=== PATIENT | male | born 1980 | race Caucasian/White ===

== ENCOUNTER 2016-06-19 09:20 | Emergency (ER) | payer SELFPAY ==
[2016-06-19] MEDS ORDERED: ALBUTEROL SULFATE HFA (90 MCG/PUFF) 8 GM MDI (1 MDI/ER DISP) IH PRN (10:16)
[2016-06-19] MEDS ORDERED: PREDNISONE 20 MG TABLET PO ONE (10:16)
--- NOTE | 2016-06-19 10:34 | ER Document Report ---
ED General - General Chief Complaint: Cough Stated Complaint: CHEST PAIN,VOMITING Mode of Arrival: Ambulatory Information source: Patient Notes: 36-year-old male presents with complaints of cough shortness of breath over the past week. Patient notes a nonproductive denies any fevers or chills admits to nausea and vomiting after he coughs very hard. TRAVEL OUTSIDE OF THE [place] IN LAST 30 DAYS: No - HPI Onset: Last week Onset/Duration: Persistent Quality of pain: Achy Severity: Mild Pain Level: 1 Associated symptoms: Nonproductive cough Exacerbated by: Denies Relieved by: Denies Similar symptoms previously: No Recently seen / treated by doctor: No - Related Data Allergies/Adverse Reactions: morphine Allergy (Verified 06/19/16 09:37) venom-honey bee [bee venom (honey bee)] Allergy (Verified 06/19/16 09:37) Past Medical History - Social History Smoking Status: Current Every Day Smoker Cigarette use (# per day): Yes Chew tobacco use (# tins/day): Yes Smoking Education Provided: Yes - Patient counselled regarding cessation for 4 minutes Frequency of alcohol use: None Drug Abuse: None Family History: Reviewed & Not Pertinent Patient has suicidal ideation: No Patient has homicidal ideation: No Renal/ Medical History: Denies: Hx Peritoneal Dialysis Past Surgical History: Reports: Hx Appendectomy, Hx Orthopedic Surgery - left and right knee, right ankle - Immunizations Hx Diphtheria, Pertussis, Tetanus Vaccination: No Review of Systems - Review of Systems Notes: REVIEW OF SYSTEMS: CONSTITUTIONAL : Denies fever, chills, or sweats. Denies recent illness. EENT: Denies eye, ear, throat, or mouth pain or symptoms. Denies nasal or sinus congestion or discharge. Denies throat, tongue, or mouth swelling or difficulty swallowing. CARDIOVASCULAR: Denies chest pain. Denies palpitations or racing or irregular heart beat. Denies ankle edema. RESPIRATORY: Admits cough shortness of breath GASTROINTESTINAL: Denies abdominal pain or distention. Denies nausea, vomiting , or diarrhea. Denies blood in vomitus, stools, or per rectum. Denies black, tarry stools. Denies constipation. GENITOURINARY: Denies difficulty urinating, painful urination, burning, frequency, blood in urine, or discharge. MUSCULOSKELETAL: Denies back or neck pain or stiffness. Denies joint pain or swelling. SKIN: Denies rash, lesions or sores. HEMATOLOGIC : Denies easy bruising or bleeding. LYMPHATIC: Denies swollen, enlarged glands. NEUROLOGICAL: Denies confusion or altered mental status. Denies passing out or loss of consciousness. Denies dizziness or lightheadedness. Denies headache. Denies weakness or paralysis or loss of use of either side. Denies problems with gait or speech. Denies sensory loss, numbness, or tingling. Denies seizures. PSYCHIATRIC: Denies anxiety or stress. Denies depression, suicidal ideation, or homicidal ideation. ALL OTHER SYSTEMS REVIEWED AND NEGATIVE. Dictation was performed using [employer] voice recognition software PHYSICAL EXAMINATION: GENERAL: Well-appearing, well-nourished and in no acute distress. HEAD: Atraumatic, normocephalic. EYES: Pupils equal round and reactive to light, extraocular movements intact, sclera anicteric, conjunctiva are normal. ENT: Nares patent, oropharynx clear without exudates. Moist mucous membranes. NECK: Normal range of motion, supple without lymphadenopathy LUNGS: Decreased breath sounds all throughout with inspiratory History wheezing HEART: Regular rate and rhythm without murmurs ABDOMEN: Soft, nontender, nondistended abdomen. No guarding, no rebound. No masses appreciated. Musculoskeletal: Normal range of motion, no pitting or edema. No cyanosis. NEUROLOGICAL: Cranial nerves grossly intact. Normal speech, normal gait. Normal sensory, motor exams PSYCH: Normal mood, normal affect. SKIN: Warm, Dry, normal turgor, no rashes or lesions noted. Physical Exam - Vital signs Vitals: Temp Pulse Resp BP Pulse Ox 98.1 F 109 H 16 132/80 H 97 06/19/16 09:30 06/19/16 09:30 06/19/16 09:30 06/19/16 09:30 06/19/16 09:30 Course - Re-evaluation Re-evalutation: 06/19/16 10:33 Patient will be started on inhaler, steroids have been given. Chest x-rays pending at this time. It appears to be bronchitis. Patient given smoking cessation instructions 06/19/16 11:25 X-ray noted no acute abnormality patient will be discharged home at this time is much better After performing a Medical Screening Examination, I estimate there is LOW risk for ACUTE CORONARY SYNDROME, RESPIRATORY FAILURE, SEPSIS OR MENINGITIS, thus I consider the discharge disposition reasonable. The patient and I have discussed the diagnosis and risks, and we agree with discharging home with close follow- up. We also discussed returning to the Emergency Department immediately if new or worsening symptoms occur. We have discussed the symptoms which are most concerning (e.g., changing or worsening pain, trouble swallowing or breathing, neck stiffness, fever) that necessitate immediate return. - Vital Signs Vital signs: Temp Pulse Resp BP Pulse Ox 98.1 F 109 H 16 132/80 H 97 06/19/16 09:30 06/19/16 09:30 06/19/16 09:30 06/19/16 09:30 06/19/16 09:30 - Diagnostic Test Radiology reviewed: Image reviewed, Reports reviewed Discharge - Discharge Clinical Impression: Bronchitis, Encounter for smoking cessation counseling Condition: Stable Disposition: HOME, SELF-CARE Instructions: Bronchitis (COUNT INCLUDES THE [facility]) Additional Instructions: Follow up with your physician tomorrow for further care or return to the ED IMMEDIATELY if symptoms worsen or new concerns occur Prescriptions: Prednisone [Deltasone 20 mg Tablet] 3 tab PO DAILY 5 Days Forms: Return to Work
[2016-06-19 11:42] VITALS: BP 142/97
== END 2016-06-19 11:40 | disposition home or self-care (01) ==
LOC: ER 09:20
DX: J40 Bronchitis, not specified as acute or chronic (principal); R07.9 Chest pain, unspecified; R11.2 Nausea with vomiting, unspecified; F17.210 Nicotine dependence, cigarettes, uncomplicated; Z88.6 Allergy status to analgesic agent
CPT/HCPCS: 99283; 71020; J7512; J3490

== ENCOUNTER 2016-07-20 09:48 | Emergency (ER) | payer SELFPAY ==
[2016-07-20 09:52] VITALS: BP 136/92
[2016-07-20] MEDS ORDERED: ONDANSETRON 4 MG TAB.RAPDIS PO ONE (11:01)
--- NOTE | 2016-07-20 13:34 | ER Document Report ---
ED General - General Chief Complaint: Vomiting Stated Complaint: VOMITING Mode of Arrival: Ambulatory Information source: Patient Notes: 36-year-old male presents to the emergency department complaining of generalized body aches, cough, intermittent headache, and intermittent episodes of nausea and vomiting since yesterday. Reports associated chills with unmeasured temperature at home. Denies chest pain or shortness of breath, blood in emesis or stool, abdominal pain or vision changes. TRAVEL OUTSIDE OF THE [place] IN LAST 30 DAYS: No - HPI Onset: Yesterday Onset/Duration: Intermittent, Persistent Quality of pain: Achy Severity: Mild Pain Level: 2 Similar symptoms previously: Yes Recently seen / treated by doctor: No - Related Data Allergies/Adverse Reactions: morphine Allergy (Verified 07/20/16 10:46) venom-honey bee [bee venom (honey bee)] Allergy (Verified 07/20/16 10:46) Past Medical History - General Information source: Patient - Social History Smoking Status: Smoker,Current Status Unk Chew tobacco use (# tins/day): Yes Frequency of alcohol use: None Drug Abuse: None Lives with: Family Family History: Reviewed & Not Pertinent Patient has suicidal ideation: No Patient has homicidal ideation: No - Medical History Medical History: Negative Renal/ Medical History: Denies: Hx Peritoneal Dialysis Past Surgical History: Reports: Hx Appendectomy, Hx Orthopedic Surgery - left and right knee, right ankle - Immunizations Hx Diphtheria, Pertussis, Tetanus Vaccination: Yes Review of Systems - Review of Systems Constitutional: See HPI EENT: See HPI Cardiovascular: No symptoms reported Respiratory: See HPI Gastrointestinal: No symptoms reported Genitourinary: No symptoms reported Male Genitourinary: No symptoms reported Musculoskeletal: No symptoms reported Skin: No symptoms reported Hematologic/Lymphatic: No symptoms reported Neurological/Psychological: No symptoms reported -: Yes All other systems reviewed and negative Physical Exam - Vital signs Vitals: Temp Pulse Resp BP Pulse Ox 97.8 F 116 H 18 136/92 H 98 07/20/16 09:51 07/20/16 09:51 07/20/16 09:51 07/20/16 09:51 07/20/16 09:51 Interpretation: Normal - General General appearance: Appears well, Alert In distress: None - HEENT Head: Normocephalic, Atraumatic Eyes: Normal Conjunctiva: Normal Eyelashes: Normal Pupils: PERRL Ears: Normal External canal: Normal Tympanic membrane: Normal Sinus: Normal Nasal: Normal Mouth/Lips: Normal Mucous membranes: Normal, Moist Pharynx: Normal. No: Blood in hypopharynx, Erythema, Exudate, Peritonsillar abscess, Post nasal drainage, Retropharyngeal abscess, Tonsillar hypertrophy, Uvular edema, Potential airway comprom., Other Neck: Normal. No: Anterior cervical chain, Posterior cervical chain, Lymphadenopathy, Meningismus, Subcutaneous emphysema - Respiratory Respiratory status: No respiratory distress Chest status: Nontender Breath sounds: Normal - CTAB, Nonproductive cough. No: Rhonchi, Wheezing Chest palpation: Normal - Cardiovascular Rhythm: Regular Heart sounds: Normal auscultation Murmur: No Pulses: Normal: Radial Normal capillary refill: Yes - Abdominal Inspection: Normal Distension: No distension Bowel sounds: Normal Tenderness: Nontender Organomegaly: No organomegaly - Back Back: Normal, Nontender - Extremities General upper extremity: Normal inspection, Nontender, Normal color, Normal ROM , Normal strength, Normal temperature. No: Tender, Edema General lower extremity: Normal inspection, Nontender, Normal color, Normal ROM , Normal strength, Normal temperature, Normal weight bearing. No: Tender, Edema - Neurological Neuro grossly intact: Yes Cognition: Normal Orientation: AAOx4 [place] Coma Scale Eye Opening: Spontaneous Starr Coma Scale Verbal: Oriented [place] Coma Scale Motor: Obeys Commands [place] Coma Scale Total: 15 Speech: Normal Motor strength normal: LUE, RUE, LLE, RLE Sensory: Normal - Psychological Associated symptoms: Normal affect, Normal mood - Skin Skin Temperature: Warm Skin Moisture: Dry Skin Color: Normal Skin Turgor: Elastic Course - Re-evaluation Re-evalutation: 07/20/16 13:33 Patient hemodynamically stable, in no distress, afebrile. Initially tachycardic on vital signs upon arrival, resolved after oral fluid intake. Influenza negative, chest x-ray unremarkable. Patient appears stable for discharge andno murmur infectious, inflammatory, or vascular etiology at this time. Will treat for likely uncomplicated viral illness at this time. Patient agrees with discharge and home care, follow-up with PCP, ED return precautions. - Vital Signs Vital signs: Temp Pulse Resp BP Pulse Ox 97.8 F 116 H 18 136/92 H 98 07/20/16 09:51 07/20/16 09:51 07/20/16 09:51 07/20/16 09:51 07/20/16 09:51 Discharge - Discharge Clinical Impression: Viral syndrome Nausea & vomiting Qualifiers: Vomiting type: unspecified Vomiting Intractability: non-intractable Qualified Code(s): R11.2 - Nausea with vomiting, unspecified Condition: Stable Disposition: HOME, SELF-CARE Instructions: Vomiting ([facility]), Viral Syndrome ([facility]), Acetaminophen, Dehydration ([facility]), Use of [id number] Ibuprofen ([facility]), Diarrhea, Nonspecific ([facility]) Additional Instructions: Drink plenty of fluids, at least 2-3 liters of water per day. Follow-up with your primary care provider this week. Return to the emergency department for any worsening symptoms or concerns. Prescriptions: Ondansetron [Zofran Odt 4 mg Tablet] 1 tab PO Q6HP PRN #8 tab.rapdis PRN Reason: For Nausea/Vomiting Guaifenesin/D-Methorphan Hb [Guaifenesin-Dextromethorph Tab] 1 each PO Q12HP PRN #8 tab.sr.12h PRN Reason: Cough Forms: Elevated Blood Pressure, Return to Work
== END 2016-07-20 13:53 | disposition home or self-care (01) ==
LOC: ER 09:48
DX: R11.2 Nausea with vomiting, unspecified (principal); B34.9 Viral infection, unspecified; R51 Headache; R68.83 Chills (without fever); Z88.5 Allergy status to narcotic agent; Z91.030 Bee allergy status; Z72.0 Tobacco use; Z90.49 Acquired absence of other specified parts of digestive tract; R00.0 Tachycardia, unspecified
CPT/HCPCS: 99283; 87804; 71020; S0119

== ENCOUNTER 2016-07-24 06:13 | Emergency (ER) | payer SELFPAY ==
[2016-07-24] MEDS ORDERED: PREDNISONE 20 MG TABLET PO ONE (09:06)
[2016-07-24] MEDS ORDERED: ACETAMINOPHEN 325 MG TABLET PO ONE (09:06)
[2016-07-24] MEDS ORDERED: IPRATROPIUM/ALBUTEROL 0.5-2.5 MG/3 ML AMPUL NEB ONE (09:06)
--- NOTE | 2016-07-24 09:07 | ER Document Report ---
HPI - HPI Patient complains to provider of: cough Onset: Other Onset/Duration: Persistent - 4 days Quality of pain: Achy Pain Level: 4 Context: Patient complains of headache, body aches, and cough for the past 4 days. Patient states that he will cough until he vomits. Patient denies any fever. Patient denies any travel, immobilization or recent surgery. Patient denies any history of DVT or PE. Associated Symptoms: Body/muscle aches, Nonproductive cough, Headache, Vomiting - After coughing, Rhinnorhea. denies: Fever Exacerbated by: Denies Relieved by: Denies Similar symptoms previously: Yes Recently seen / treated by doctor: Yes - ROS ROS below otherwise negative: Yes Systems Reviewed and Negative: Yes All other systems reviewed and negative - CONSTITUTIONAL Constitutional: REPORTS: Chills. DENIES: Fever - EENT EENT: REPORTS: Congestion - NEURO Neurology: REPORTS: Headache - RESPIRATORY Respiratory: REPORTS: Coughing. DENIES: Trouble Breathing - GASTROINTESTINAL Gastrointestinal: REPORTS: Patient vomiting - After coughing - MUSCULOSKELETAL Musculoskeletal: DENIES: Extremity pain, Back Pain - DERM Skin Color: Normal Skin Problems: None Past Medical History - General Information source: Patient - Social History Smoking Status: Current Every Day Smoker Frequency of alcohol use: None Drug Abuse: None Occupation: fast food server Lives with: Family Family History: Reviewed & Not Pertinent Patient has suicidal ideation: No Patient has homicidal ideation: No - Medical History Medical History: Negative Renal/ Medical History: Denies: Hx Peritoneal Dialysis Past Surgical History: Reports: Hx Appendectomy, Hx Orthopedic Surgery - left and right knee, right ankle - Immunizations Hx Diphtheria, Pertussis, Tetanus Vaccination: Yes Vertical Provider Document - CONSTITUTIONAL Agree With Documented VS: Yes Exam Limitations: No Limitations General Appearance: WD/WN, No Apparent Distress - INFECTION CONTROL TRAVEL OUTSIDE OF THE [place] IN LAST 30 DAYS: No - HEENT HEENT: Atraumatic, Normocephalic. negative: Pharyngeal Exudate - NECK Neck: Normal Inspection, Supple. negative: Lymphadenopathy-Left, Lymphadenopathy-Right - RESPIRATORY Respiratory: No Respiratory Distress, Wheezing O2 Sat by Pulse Oximetry: 97 - CARDIOVASCULAR Cardiovascular: Regular Rhythm, No Murmur, Tachycardia - BACK Back: Normal Inspection - MUSCULOSKELETAL/EXTREMETIES Musculoskeletal/Extremeties: MAEW - NEURO Level of Consciousness: Awake, Alert, Appropriate Motor/Sensory: No Motor Deficit, No Sensory Deficit - DERM Integumentary: Warm, No Rash Course - Re-evaluation Re-evalutation: 07/24/[address] Pierce regarding patient presentation and diagnostic evaluation. Dr. Pierce to bedside for examination. Agrees with discharge plan of care. - Vital Signs Vital signs: Temp Pulse Resp BP Pulse Ox 98.8 F 112 H 20 125/83 97 07/24/16 09:04 07/24/16 09:04 07/24/16 09:04 07/24/16 09:04 07/24/16 09:04 - Diagnostic Test Radiology reviewed: Reports reviewed Discharge - Discharge Clinical Impression: Wheezing Upper respiratory infection Qualifiers: URI type: unspecified URI Qualified Code(s): J06.9 - Acute upper respiratory infection, unspecified Condition: Stable Disposition: HOME, SELF-CARE Additional Instructions: Return immediately for any new or worsening symptoms Followup with your primary care provider, call tomorrow to make a followup appointment UPPER RESPIRATORY ILLNESS: You have a viral infection of the respiratory passages -- a "cold." This common infection causes nasal congestion, drainage, and often sore throat and cough. It is highly contagious. The disease usually lasts about 10 to 14 days. There is no "cure" for the viral infection -- it must run its course. If there is a complication, such as bacterial infection in the nose, sinuses, middle ear, or bronchial tubes, antibiotics may be required. The antibiotics won't affect the virus. Drink plenty of fluids. A humidifier may help. An expectorant medication or decongestant may make you more comfortable. Use acetaminophen or ibuprofen for fever or aches. See the doctor if fever persists over two days, if there is any significant worsening of your symptoms, or if you simply fail to improve as expected. BRONCHOSPASM: You have tightness in the bronchial tubes, called bronchospasm. This often occurs with bronchial infections. Allergies, inhaled chemicals, and polluted or cold air can also provoke bronchospasm. It's more likely in patients with asthma in the family. Emergency treatment of bronchospasm may include adrenaline shots or bronchodilator aerosol. You may feel lightheaded and have a rapid pulse for an hour or two. Rest and get plenty of fluids. At home, we'll treat you with a bronchodilator inhaler. Antibiotics and corticosteroids may be required for some patients. Until you recover, avoid chemical fumes, dusts, pollens, and exercising in very cold or dry air. If you smoke, stop now!! If you develop a fever, increased wheezing, chest pain, or severe shortness of breath, you should contact the doctor immediately. INHALED BRONCHODILATORS: You have received a treatment of and/or prescription for an inhaled bronchodilator -- a medication which stimulates the airways in the lung to dilate. This improves the flow of air in asthma, bronchitis, and emphysema. These medicines have some similarity to adrenaline, and can cause similar side effects: shakiness, racing heart, and a sense of nervousness. These side effects decrease with time. Contact your doctor if these side effects are severe. Do not over-use the medicine. Too-frequent use of the inhaler may make it ineffective. Call your doctor if the inhaler is not controlling your symptoms at the prescribed doses. STEROID MEDICATION: You have been given an injection of or oral medicine of the cortisone/ steroid class. This medication is used to control inflammation or allergy. Oliver t is usually only given for a short period of time, until the acute process subsides. There are usually no side effects from short-term use of cortisone-like medications. Some persons feel an increased sense of well-being and are not sleepy at bedtime. Long-term use of cortisone medications is best avoided, unless required for a severe condition. If your condition does not remit, or relapses after the course of corticosteroid medication, you should consult your physician. USE OF ACETAMINOPHEN (Tylenol): Acetaminophen may be taken for pain relief or fever control. It's much safer than aspirin, offering a wider range of "safe" dosages. It is safe during . Some brand names are Tylenol, Panadol, Datril, Anacin 3, Tempra, and Liquiprin. Acetaminophen can be repeated every four hours. The following are maximum recommended dosages: >89 pounds or adults 650 mg to 900 mg Acetaminophen can be repeated every four hours. Maximum dose not to exceed 4000 mg a day. SMOKING: If you smoke, you should stop smoking. The tar and chemicals in cigarette smoke are harmful. Smoking has been shown to cause: emphysema chronic bronchitis lung cancer mouth and throat cancer stomach and pancreas cancer premature aging defects In addition, smoking increases ear and lung infections in children of smokers. FOLLOW-UP CARE: If you have been referred to a physician for follow-up care, call the physician s office for an appointment as you were instructed or within the next two days. If you experience worsening or a significant change in your symptoms, notify the physician immediately or return to the Emergency Department at any time for re-evaluation. Prescriptions: Benzonatate [Tessalon Perle 100 mg Capsule] 100 mg PO Q8HP PRN #20 cap PRN Reason: Albuterol Sulfate [Proair HFA Inhalation Aerosol 8.5 gm MDI] 2 puff IH Q4H PRN # 1 mdi PRN Reason: Hydrocodone/Acetaminophen [Beason 5-325 Tablet] 1 each PO Q4 PRN #15 tablet PRN Reason: Prednisone [Deltasone 20 mg Tablet] 3 tab PO DAILY 5 Days Forms: Return to Work Referrals: [facility] [Provider Group] - Follow up as needed [facility] [Provider Group] - Follow up as needed
[2016-07-24 11:00] VITALS: BP 123/78
== END 2016-07-24 11:01 | disposition home or self-care (01) ==
LOC: ER 06:13
DX: J06.9 Acute upper respiratory infection, unspecified (principal); R06.2 Wheezing; R05 Cough; R51 Headache; M79.1 Myalgia; J34.89 Other specified disorders of nose and nasal sinuses; R68.83 Chills (without fever); F17.200 Nicotine dependence, unspecified, uncomplicated
CPT/HCPCS: 94640; 99283; 71020; J7512; J7620

== ENCOUNTER 2016-09-02 19:12 | Emergency (ER) | payer SELFPAY ==
[2016-09-02] MEDS ORDERED: ASPIRIN 81 MG TABLET, CHEWABLE PO ONE (19:45)
[2016-09-02] MEDS ORDERED: PREDNISONE 20 MG TABLET PO ONE (19:58)
[2016-09-02] MEDS ORDERED: IPRATROPIUM/ALBUTEROL 0.5-2.5 MG/3 ML AMPUL NEB ONE (19:58)
[2016-09-02] MEDS ORDERED: NORMAL SALINE 1000 ML 1,000 ML IV ONE (19:59)
[2016-09-02] MEDS ORDERED: ONDANSETRON 4 MG TAB.RAPDIS PO ONE (19:59)
--- NOTE | 2016-09-02 20:04 | ER Document Report ---
ED Medical Screen (RME) - General Mode of Arrival: Ambulatory Information source: Patient TRAVEL OUTSIDE OF THE [place] IN LAST 30 DAYS: No - HPI Patient complains to provider of: Shortness of Breath and Chest Pain Onset: Other - 2 days ago Associated Symptoms: Other - see notes above <ANCELMO PATTERSON - Last Filed: 09/02/16 20:25> <LENO GAUTHIER - Last Filed: 09/02/16 20:29> - General Chief Complaint: Chest Pain Stated Complaint: CHEST PAIN Notes: 36 year old male presents to the ED complaining of shortness of breath and chest pain that started 2 days ago. (ANCELMO PATTERSON) - Related Data Allergies/Adverse Reactions: morphine Allergy (Verified 09/02/16 19:56) venom-honey bee [bee venom (honey bee)] Allergy (Verified 09/02/16 19:56) Home Medications: Current Home Medications No Home Medications 09/02/16 [History] Past Medical History - General Information source: Patient Renal/ Medical History: Denies: Hx Peritoneal Dialysis Past Surgical History: Reports: Hx Appendectomy, Hx Orthopedic Surgery - left and right knee, right ankle - Immunizations Hx Diphtheria, Pertussis, Tetanus Vaccination: Yes <ANCELMO PATTERSON - Last Filed: 09/02/16 20:25> Review of Systems - Review of Systems Constitutional: No symptoms reported EENT: No symptoms reported Cardiovascular: See HPI, Chest pain Respiratory: See HPI, Short of breath Gastrointestinal: No symptoms reported Genitourinary: No symptoms reported Male Genitourinary: No symptoms reported Musculoskeletal: No symptoms reported Skin: No symptoms reported Hematologic/Lymphatic: No symptoms reported Neurological/Psychological: No symptoms reported <ANCELMO PATTERSON - Last Filed: 09/02/16 20:25> Physical Exam - General General appearance: Alert In distress: None - Respiratory Respiratory status: No respiratory distress Breath sounds: Wheezing - audible wheezing - Cardiovascular Rhythm: Regular, Tachycardia <ANCELMO PATTERSON - Last Filed: 09/02/16 20:25> Course <ANCELMO PATTERSON - Last Filed: 09/02/16 20:25> - Laboratory Result Diagrams: 09/02/16 20:15 09/02/16 20:15 <LENO GAUTHIER - Last Filed: 09/02/16 20:29> - Re-evaluation Re-evalutation: 09/02/16 20:29 I personally performed the services described in the documentation, reviewed and edited the documentation which was dictated to the scribe in my presence, and it accurately records my words and actions. (LENO GAUTHIER) Scribe Documentation - Scribe Written by Scribe:: Rosa Kramer, 09/02/[id number] acting as scribe for :: Yfn <ANCELMO PATTERSON - Last Filed: 09/02/16 20:25>
[2016-09-02 20:34] LABS: ABSOLUTE BASOPHILS # (AUTO) 0.1 10^3/uL (0.0-0.2); ABSOLUTE EOSINOPHILS # (AUTO) 0.3 10^3/uL (0.0-0.6); ABSOLUTE LYMPHOCYTES (AUTO) 3.4 10^3/uL (0.5-4.7); ABSOLUTE MONOCYTES (AUTO) 0.8 10^3/uL (0.1-1.4); ABSOLUTE NEUT (AUTO) 6.2 10^3/uL (1.7-8.2); BASOPHILS % (AUTO) 1.1 % (0-2); EOSINOPHILS % (AUTO) 3.1 % (0-6); HEMATOCRIT 43.7 % (37.9-51.0); HEMOGLOBIN 14.8 g/dL (13.5-17.0); HGB HCT DIFFERENCE 0.7; LYMPHOCYTES % (AUTO) 31.5 % (13-45); MEAN CORPUSCULAR HEMOGLOBIN 33.7 pg (27.0-33.4); MEAN CORPUSCULAR HGB CONC 33.9 g/dL (32.0-36.0); MEAN CORPUSCULAR VOLUME 99 fl (80-97); MONOCYTES % (AUTO) 7.5 % (3-13); RED CELL DISTRIBUTION WIDTH 14.1 % (11.5-14.0); SEGMENTED NEUTROPHILS % (AUTO) 56.8 % (42-78); WHITE BLOOD COUNT 10.8 10^3/uL (4.0-10.5)
--- NOTE | 2016-09-02 20:48 | ER Document Report ---
ED General - General Chief Complaint: Breathing Difficulty Stated Complaint: CHEST PAIN Mode of Arrival: Ambulatory Information source: Patient Notes: Patient presents emergency department with complaints of chest pain vomiting x 1 , tired reports he can't breathe. Reports symptoms for the past 2 days. Denies history of cardiac disease. Denies fever or diarrhea. Patient reports he recently drove to [place] at home. He recently quit smoking 2 weeks ago. Denies history of PEs DVTs. Denies trauma. She reports he gets extremely short winded walking from the bathroom to his bedroom. TRAVEL OUTSIDE OF THE U.S. IN LAST 30 DAYS: No - HPI Onset: Other - 2 days Onset/Duration: Persistent Severity: Severe Pain Level: 4 Associated symptoms: Vomiting Exacerbated by: Coughing, Deep breathing Relieved by: Denies Similar symptoms previously: No Recently seen / treated by doctor: No - Related Data Allergies/Adverse Reactions: morphine Allergy (Verified 09/02/16 19:56) venom-honey bee [bee venom (honey bee)] Allergy (Verified 09/02/16 19:56) Home Medications: Current Home Medications No Home Medications 09/02/16 [History] Past Medical History - General Information source: Patient - Social History Smoking Status: Current Every Day Smoker Cigarette use (# per day): Yes Occupation: [employer] Lives with: Alone Family History: Reviewed & Not Pertinent Patient has suicidal ideation: No Patient has homicidal ideation: No Pulmonary Medical History: Reports: Hx Asthma Renal/ Medical History: Denies: Hx Peritoneal Dialysis Past Surgical History: Reports: Hx Appendectomy, Hx Orthopedic Surgery - left and right knee, right ankle - Immunizations Hx Diphtheria, Pertussis, Tetanus Vaccination: Yes Review of Systems - Review of Systems Notes: Review HPI for review of systems., All other systems negative Physical Exam - Vital signs Vitals: Resp 19 09/02/16 20:26 - Notes Notes: PHYSICAL EXAMINATION: GENERAL: Well-appearing and in no acute distress HEAD: Atraumatic, normocephalic. EYES: Pupils equal round and reactive to light, extraocular movements intact, sclera anicteric, conjunctiva are normal. ENT: nares patent, oropharynx clear without exudates. Moist mucous membranes. NECK: Normal range of motion, supple without lymphadenopathy LUNGS: CTAB and equal. No wheezes rales or rhonchi. HEART: Regular rate and rhythm without murmurs ABDOMEN: Soft, no tenderness. No guarding, no rebound EXTREMITIES: Normal range of motion, no pitting edema. No cyanosis. NEUROLOGICAL: Cranial nerves grossly intact. Normal sensory/motor exams. PSYCH: Normal mood, normal affect. SKIN: Warm, Dry, normal turgor, no rashes or lesions noted Course - Re-evaluation Re-evalutation: 09/02/16 22:[address] Mccoy regarding CTA, she advised transfer, discussed CTA results with patient, he wanted to contact his mom first. 09/02/16 23:30 Pt becomes SOB with exertion. He agree's with transfer for higher level of care. [facility] transfer line contacted. [facility] Dr Bailey returned page. He agrees to transfer unfortunately they did not have any beds for the next 24 hours. I contacted [facility] who reports they have no beds there. I also contacted [facility]. 09/03/16 02:[address] Gonzalez for consult. He advises the patient to be transferred, he also advised solumedrol 125mg IV Dr. Martin returned the call from [facility]. He requested results of drug screen which have not returned yet. He reports that once we get these results to call him back. Patient updated on pending transfer. 09/03/16 04:30 Called Ama Vang for Dr Martin to update him on esr, drug screen. 5:00 Dr. Martin from [facility] return call he was updated on patient's past chest x-ray negative drug screen. He does accept the patient reports he thinks they have one bed.. Awaiting a callback from transfer center. 09/03/16 07:10 Report given to John Paul COULTER. Pt introduced to LICO Gillis forms completed. - Vital Signs Vital signs: Temp Pulse Resp BP Pulse Ox 21 H 123/105 H 95 09/03/16 06:31 09/03/16 06:00 09/03/16 06:31 - Laboratory Result Diagrams: 09/02/16 20:15 09/02/16 20:54 Laboratory results interpreted by me: 09/02/16 09/02/16 09/03/16 20:15 20:54 01:30 WBC 10.8 H MCV 99 H MCH 33.7 H RDW 14.1 H Carbon Dioxide 21 L Glucose 261 H NT-Pro-B Natriuret Pep 4140 H Urine Protein Urine Glucose (UA) Urine Ketones 09/03/16 01:40 WBC MCV MCH RDW Carbon Dioxide Glucose NT-Pro-B Natriuret Pep Urine Protein 30 H Urine Glucose (UA) >=500 H Urine Ketones 20 H - Diagnostic Test Radiology reviewed: Image reviewed, Reports reviewed - IMPRESSION: Bilateral pleural effusions right greater than left as noted above. Moderate size pericardial effusion is identified no acute consolidations. No evidence for pulmonary embolic disease. Other findings as noted above - EKG Interpretation by Wa EKG shows normal: Sinus rhythm Rate: Tachycardia Discharge - Discharge Clinical Impression: Pericardial effusion, Pleural effusion, Shortness of breath Chest pain Qualifiers: Chest pain type: chest pain on breathing Qualified Code(s): R07.1 - Chest pain on breathing Condition: Stable Disposition: [facility]
[2016-09-02 21:25] LABS: ANION GAP 11 (5-19); CALCIUM 8.4 mg/dL (8.4-10.2); CARBON DIOXIDE 21 mmol/L (22-30); CHLORIDE 107 mmol/L (98-107); CREATININE RESULT 0.66 mg/dL (0.52-1.25); GLUCOSE 261 mg/dL (75-110); SODIUM 139.2 mmol/L (137-145)
[2016-09-02 21:34] LABS: POTASSIUM 4.2 mmol/L (3.6-5.0)
[2016-09-02 21:35] LABS: BLOOD UREA NITROGEN 14 mg/dL (7-20)
[2016-09-02 23:49] LABS: CREATINE KINASE MB 0.98 ng/mL (<4.55); TROPONIN I 0.03 ng/mL
[2016-09-03] MEDS ORDERED: ACETAMINOPHEN 325 MG TABLET PO ONE (01:09)
[2016-09-03] MEDS ORDERED: METHYLPREDNISOLONE INJ 125 MG/2 ML SDV IV ONE (02:53)
[2016-09-03] MEDS ORDERED: DIPHENHYDRAMINE HCL 25 MG CAPSULE PO ONE (03:47)
[2016-09-03 04:00] LABS: PROTHROMBIN TIME 14.8 SEC (11.4-15.4)
[2016-09-03 04:03] LABS: APPEARANCE,URINE CLEAR; BILIRUBIN,URINE NEGATIVE (NEGATIVE); GLUCOSE, URINE >=500 mg/dL (NEGATIVE); KETONES,URINE 20 mg/dL (NEGATIVE); LEUKOCYTE ESTERASE,URINE NEGATIVE (NEGATIVE); NITRITE,URINE NEGATIVE (NEGATIVE); PROTEIN,URINE 30 mg/dL (NEGATIVE); URINE SPECIFIC GRAVITY 1.046; UROBILINOGEN,URINE NEGATIVE mg/dL (<2.0)
[2016-09-03 04:16] LABS: URINE BARBITURATES SCREEN NEGATIVE; URINE METHADONE SCREEN NEGATIVE; URINE OPIATES LOW NEGATIVE; URINE PHENCYCLIDINE SCREEN NEGATIVE
[2016-09-03] MEDS ORDERED: FUROSEMIDE INJ/PF 40 MG/4 ML SDV IV ONE (07:24)
[2016-09-03 08:01] VITALS: BP 124/89
--- NOTE | 2016-09-03 22:09 | EKG REPORT ---
SEVERITY:- ABNORMAL ECG - SINUS TACHYCARDIA PROBABLE LEFT ATRIAL ABNORMALITY NONSPECIFIC T ABNORMALITIES, LATERAL LEADS : Confirmed by: Odalys Marley MD 03-Sep-2016 22:08:50
--- NOTE | 2016-09-03 22:09 | EKG REPORT ---
SEVERITY:- ABNORMAL ECG - SINUS TACHYCARDIA PROBABLE LEFT ATRIAL ABNORMALITY NONSPECIFIC T ABNORMALITIES, LATERAL LEADS : Confirmed by: Odalys Marley MD 03-Sep-2016 22:08:21
== END 2016-09-03 08:01 | disposition short-term general hospital (02) ==
LOC: ER 19:12
DX: I31.3 Pericardial effusion (noninflammatory) (principal); J90 Pleural effusion, not elsewhere classified; R06.02 Shortness of breath; R07.9 Chest pain, unspecified; F17.210 Nicotine dependence, cigarettes, uncomplicated
CPT/HCPCS: 93005 ×2; 94640; 99285; 96374; 36415; 82553; 82550; 85025; 85652; 85610; 86140; 80048; 81001; 84484; 80307; 83880; 71020; 71275; 93010 ×2; S0119; J2930; J7512; J7620

== ENCOUNTER 2016-09-17 14:14 | Inpatient (IN) | payer SELFPAY ==
[2016-09-17] MEDS ORDERED: ASPIRIN 81 MG TABLET, CHEWABLE PO ONE (14:40)
[2016-09-17 14:59] LABS: ABSOLUTE BASOPHILS # (AUTO) 0.1 10^3/uL (0.0-0.2); ABSOLUTE EOSINOPHILS # (AUTO) 0.1 10^3/uL (0.0-0.6); ABSOLUTE MONOCYTES (AUTO) 0.6 10^3/uL (0.1-1.4); ABSOLUTE NEUT (AUTO) 5.8 10^3/uL (1.7-8.2); EOSINOPHILS % (AUTO) 1.6 % (0-6); LYMPHOCYTES % (AUTO) 23.6 % (13-45); MEAN CORPUSCULAR HEMOGLOBIN 33.2 pg (27.0-33.4); MEAN CORPUSCULAR HGB CONC 34.2 g/dL (32.0-36.0); MEAN CORPUSCULAR VOLUME 97 fl (80-97); MONOCYTES % (AUTO) 6.4 % (3-13); RED BLOOD COUNT 4.22 10^6/uL (4.35-5.55); RED CELL DISTRIBUTION WIDTH 13.4 % (11.5-14.0); SEGMENTED NEUTROPHILS % (AUTO) 67.4 % (42-78); WHITE BLOOD COUNT 8.6 10^3/uL (4.0-10.5)
[2016-09-17 15:11] LABS: ALANINE AMINOTRANSFERASE 53 U/L (21-72); ALBUMIN 3.9 g/dL (3.5-5.0); ALKALINE PHOSPHATASE 73 U/L (38-126); ANION GAP 12 (5-19); ASPARTATE AMINO TRANSFERASE 33 U/L (17-59); BILIRUBIN,DIRECT 0.2 mg/dL (0.0-0.4); BILIRUBIN,TOTAL 1.1 mg/dL (0.2-1.3); BLOOD UREA NITROGEN 19 mg/dL (7-20); CALCIUM 9.2 mg/dL (8.4-10.2); CARBON DIOXIDE 21 mmol/L (22-30); CHLORIDE 107 mmol/L (98-107); CREATINE KINASE 52 U/L (55-170); CREATININE RESULT 0.87 mg/dL (0.52-1.25); GLUCOSE 340 mg/dL (75-110); POTASSIUM 4.7 mmol/L (3.6-5.0); SODIUM 139.8 mmol/L (137-145); TOTAL PROTEIN 6.4 g/dL (6.3-8.2)
[2016-09-17 15:23] LABS: CREATINE KINASE MB 1.03 ng/mL (<4.55); TROPONIN I 0.019 ng/mL
[2016-09-17] MEDS ORDERED: FUROSEMIDE INJ/PF 40 MG/4 ML SDV IV ONE (15:33)
--- NOTE | 2016-09-17 15:33 | ER Document Report ---
ED General - General Chief Complaint: Breathing Difficulty Stated Complaint: DIFFICULTY BREATHING Time seen by provider: 15:29 Mode of Arrival: Ambulatory Information source: Patient Notes: This is a 36-year-old man coming in to the emergency room with shortness of breath. The patient has a history of a recent diagnosis of a CHF/ cardiomyopathy (ejection fraction 18-20%) patient wears a LifeVest. The patient states he got out of [facility] approximately 1-2 weeks ago. He has not been on any medicine because he is unable to afford it. He states he's been getting short of breath and having dyspnea on exertion for the past 3 days. The patient denies any chest pain. He does report increased swelling of the lower legs. The patient's past medical history also includes diabetes. Medicines current: None Allergies: Morphine TRAVEL OUTSIDE OF THE U.S. IN LAST 30 DAYS: No - HPI Onset: Last week Onset/Duration: Gradual Quality of pain: No pain Severity: None Pain Level: Denies Associated symptoms: Shortness of breath. denies: Chest pain, Chills, Fever Exacerbated by: Movement, Walking Relieved by: Remaining still Similar symptoms previously: Yes Recently seen / treated by doctor: Yes - Related Data Allergies/Adverse Reactions: morphine Allergy (Verified 09/02/16 19:56) tomato Allergy (Verified 09/17/16 14:19) venom-honey bee [bee venom (honey bee)] Allergy (Verified 09/02/16 19:56) Past Medical History - General Information source: Patient - Social History Smoking Status: Former Smoker Cigarette use (# per day): No - the patient quit one month ago Chew tobacco use (# tins/day): No Smoking Education Provided: No Frequency of alcohol use: None Drug Abuse: None Lives with: Alone Family History: Reviewed & Not Pertinent Patient has suicidal ideation: No Patient has homicidal ideation: No - Past Medical History Cardiac Medical History: Reports: Hx Congestive Heart Failure, Other - Cardiomyopathy, ejection fraction 18-20%, was otherwise past. Pulmonary Medical History: Reports: Hx Asthma Endocrine Medical History: Reports: Hx Diabetes Mellitus Type 2 Renal/ Medical History: Denies: Hx Peritoneal Dialysis Malignancy Medical History: Reports None GI Medical History: Reports: None Musculoskeltal Medical History: Reports None Skin Medical History: Reports None Psychiatric Medical History: Reports: None Traumatic Medical History: Reports: None Infectious Medical History: Reports: None Past Surgical History: Reports: Hx Appendectomy, Hx Orthopedic Surgery - left and right knee, right ankle - Immunizations Hx Diphtheria, Pertussis, Tetanus Vaccination: Yes Review of Systems - Review of Systems Constitutional: No symptoms reported EENT: No symptoms reported Cardiovascular: See HPI Respiratory: See HPI Gastrointestinal: No symptoms reported Genitourinary: No symptoms reported Male Genitourinary: No symptoms reported Musculoskeletal: No symptoms reported Skin: No symptoms reported Hematologic/Lymphatic: No symptoms reported Neurological/Psychological: No symptoms reported Physical Exam - Vital signs Vitals: Temp Pulse Resp BP Pulse Ox 97.7 F 120 H 24 H 130/90 H 98 09/17/16 14:19 09/17/16 14:19 09/17/16 14:19 09/17/16 14:19 09/17/16 14:19 Notes: Physical exam: GENERAL: 86-year-old man, alert and oriented 3, no acute distress. HEAD: Atraumatic, normocephalic. EYES: Pupils equal round and reactive to light, extraocular movements intact, sclera anicteric, conjunctiva are normal. ENT: TMs normal, nares patent, oropharynx clear without exudates. Moist mucous membranes. NECK: Normal range of motion, supple without lymphadenopathy or JVD. LUNGS: Diminished breath sounds at the bases. HEART: Regular rate and rhythm without murmurs, rubs or gallops. ABDOMEN: Soft, normoactive bowel sounds. No tenderness to palpation. No guarding, no rebound. No masses appreciated. EXTREMITIES: 1+ edema bilaterally NEUROLOGICAL: Cranial nerves II through XII grossly intact. Normal speech, normal gait. PSYCH: Normal mood, normal affect. SKIN: Warm, Dry, normal turgor, no rashes or lesions noted. Course - Vital Signs Vital signs: Temp Pulse Resp BP Pulse Ox 97.7 F 120 H 19 130/90 H 99 09/17/16 14:19 09/17/16 14:19 09/17/16 15:21 09/17/16 14:19 09/17/16 15:21 - Laboratory Result Diagrams: 09/17/16 14:50 09/17/16 14:50 Laboratory results interpreted by me: 09/17/16 09/17/16 09/17/16 14:50 14:50 14:50 RBC 4.22 L Carbon Dioxide 21 L Glucose 340 H Creatine Kinase 52 L NT-Pro-B Natriuret Pep 4930 H - Diagnostic Test Radiology reviewed: Image reviewed, Reports reviewed - Chest x-ray consistent with CHF - EKG Interpretation by Me Rate: Tachycardia - EKG shows sinus tachycardia with a ventricular rate of 120, no acute ST elevations. QTC 436. Critical Care Note - Critical Care Note Total time excluding time spent on procedures (mins): 60 Discharge - Discharge Clinical Impression: acute CHF, hyperglycemia Condition: Serious Disposition: ADMITTED INPATIENT Admitting Provider: Hospitalist - Dr. Stauffer Unit Admitted: [facility]
[2016-09-17 16:45] LABS: APPEARANCE,URINE CLEAR; BILIRUBIN,URINE NEGATIVE (NEGATIVE); GLUCOSE, URINE >=500 mg/dL (NEGATIVE); KETONES,URINE NEGATIVE (NEGATIVE); LEUKOCYTE ESTERASE,URINE NEGATIVE (NEGATIVE); NITRITE,URINE NEGATIVE (NEGATIVE); PROTEIN,URINE NEGATIVE (NEGATIVE); URINE SPECIFIC GRAVITY 1.018; UROBILINOGEN,URINE NEGATIVE mg/dL (<2.0)
[2016-09-17] MEDS ORDERED: DEXTROSE 40% GEL 15 GM TUBE PO PRN ×2 (17:13)
[2016-09-17] MEDS ORDERED: GLUCAGON,HUMAN RECOMB 1 MG INJ IM PRN (17:13)
[2016-09-17] MEDS ORDERED: DEXTROSE 50%-WATER 25 GM/50 ML DISP.SYRIN IV PRN ×2 (17:13)
[2016-09-17] MEDS ORDERED: ACETAMINOPHEN 325 MG TABLET PO PRN (17:14)
[2016-09-17] MEDS ORDERED: ONDANSETRON HCL INJ/PF 4 MG/2 ML SDV IV PRN (17:14)
--- NOTE | 2016-09-17 17:31 | PDOC H&P ---
History of Present Illness Admission Date/PCP: 09/17/16 17:01 Patient complains of: Shortness of breath History of Present Illness: CLARENCE DIAZ JR is a 36 year old male with past medical history of idiopathic cardiomyopathy resulting in systolic congestive heart failure with a recently documented ejection fraction of 20% on admission to [facility] in [facility] presents to the emergency department with 3 day history of increasing shortness of breath, nausea, vomiting, paroxysmal nocturnal dyspnea, dyspnea on exertion. As mentioned patient [facility]. He has not been taking any of his medications secondary to financial reasons. He states he is going to be moving to [place] next week with family and is in the process of applying for health insurance in [place]. In further discussion with patient it sounds like he has had cardiomyopathy for at least the past 3 years. He had a cardiac catheterization in 2013 in [place] with EF of 40% at the time. He has not taken any medications for that. He states he is also not been taking her diabetes medicines. Patient presents wearing a life vest that was given to him by [facility]. Patient states that he has done a lot of reading and is taking his conditions very seriously since being discharged from [facility]. When I asked him if he is taking any of his medications he responded "no". Past Medical History Cardiac Medical History: Reports: Congestive Heart Failure, Other - Cardiomyopathy, ejection fraction 18-20%, was otherwise past. Pulmonary Medical History: Reports: Asthma Endocrine Medical History: Reports: Diabetes Mellitus Type 2 Malignancy Medical History: Reports: None GI Medical History: Reports: None Musculoskeltal Medical History: Reports: None Skin Medical History: Reports: None Psychiatric Medical History: Reports: None Traumatic Medical History: Reports: None Infectious Medical History: Reports: None Past Surgical History Past Surgical History: Reports: Appendectomy, Orthopedic Surgery - left and right knee, right ankle Social History Information Source: Patient Lives with: Alone Smoking Status: Former Smoker Frequency of Alcohol Use: Rare Hx Recreational Drug Use: No Hx Prescription Drug Abuse: No - Advance Directive Resuscitation Status: Full Code Family History Family History: CAD Parental Family History Reviewed: Yes Children Family History Reviewed: Yes Sibling(s) Family History Reviewed.: Yes Medication/Allergy Home Medications: No Home Medications 09/02/16 Allergies/Adverse Reactions: morphine Allergy (Verified 09/17/16 16:54) tomato Allergy (Verified 09/17/16 16:54) venom-honey bee [bee venom (honey bee)] Allergy (Verified 09/17/16 16:54) Review of Systems Constitutional: ABSENT: chills, fever(s), headache(s), weight gain, weight loss Eyes: ABSENT: visual disturbances Ears: ABSENT: hearing changes Cardiovascular: PRESENT: dyspnea on exertion, edema, orthropnea. ABSENT: chest pain, palpitations Respiratory: PRESENT: dyspnea. ABSENT: cough, hemoptysis Gastrointestinal: PRESENT: nausea. ABSENT: abdominal pain, constipation, diarrhea, hematemesis, hematochezia, vomiting Genitourinary: ABSENT: dysuria, hematuria Musculoskeletal: ABSENT: joint swelling Integumentary: ABSENT: rash, wounds Neurological: ABSENT: abnormal gait, abnormal speech, confusion, dizziness, focal weakness, syncope Psychiatric: ABSENT: anxiety, depression, homidical ideation, suicidal ideation Endocrine: ABSENT: cold intolerance, heat intolerance, polydipsia, polyuria Hematologic/Lymphatic: ABSENT: easy bleeding, easy bruising Physical Exam Vital Signs: Temp Pulse Resp BP Pulse Ox 97.8 F 120 H 26 H 125/96 H 99 09/17/16 17:02 09/17/16 14:19 09/17/16 17:02 09/17/16 17:02 09/17/16 17:02 Intake & Output 09/16/16 09/17/16 09/18/16 06:59 06:59 06:59 Output Total 650 Balance -650 PHYSICAL EXAM: GENERAL: Appears well, no acute distress HEENT: Normocephalic, no scleral icterus, conjunctiva clear, EOEM intact, PERRLA , moist mucous membranes NECK: trachea midline, no thyromegally RESPIRATORY: Bibasilar crackles CARDIAC: Regular rate and rhythm, no murmur/angie/rub ABDOMEN: Soft, no distension, no tenderness, no guarding, normal bowel sounds, negative Tripp sign RECTAL: deferred : deferred EXTREMITIES: Pitting edema in bilateral lower extremities MUSCULOSKELETAL: No joint swelling or deformity VASCULAR: normal peripheral pulses NEUROLOGIC: Alert, oriented to person/place/time, normal speech, cranial nerves grossly intact, 5/5 strength in all extremities, tactile sensation intact in all extremities SKIN: No rash, no wounds, no worrisome skin lesions PSYCHIATRIC: Normal mood, normal affect Results Laboratory Results: Labs- Last Values WBC 8.6 10^3/uL (4.0-10.5) 09/17/16 14:50 RBC 4.22 10^6/uL (4.35-5.55) L 09/17/16 14:50 Hgb 14.0 g/dL (13.5-17.0) 09/17/16 14:50 Hct 41.0 % (37.9-51.0) 09/17/16 14:50 MCV 97 fl (80-97) 09/17/16 14:50 MCH 33.2 pg (27.0-33.4) 09/17/16 14:50 MCHC 34.2 g/dL (32.0-36.0) 09/17/16 14:50 RDW 13.4 % (11.5-14.0) 09/17/16 14:50 Plt Count 278 10^3/uL (150-450) 09/17/16 14:50 Seg Neutrophils % 67.4 % (42-78) 09/17/16 14:50 Lymphocytes % 23.6 % (13-45) 09/17/16 14:50 Monocytes % 6.4 % (3-13) 09/17/16 14:50 Eosinophils % 1.6 % (0-6) 09/17/16 14:50 Basophils % 1.0 % (0-2) 09/17/16 14:50 Absolute Neutrophils 5.8 10^3/uL (1.7-8.2) 09/17/16 14:50 Absolute Lymphocytes 2.0 10^3/uL (0.5-4.7) 09/17/16 14:50 Absolute Monocytes 0.6 10^3/uL (0.1-1.4) 09/17/16 14:50 Absolute Eosinophils 0.1 10^3/uL (0.0-0.6) 09/17/16 14:50 Absolute Basophils 0.1 10^3/uL (0.0-0.2) 09/17/16 14:50 Sodium 139.8 mmol/L (137-145) 09/17/16 14:50 Potassium 4.7 mmol/L (3.6-5.0) 09/17/16 14:50 Chloride 107 mmol/L (98-107) 09/17/16 14:50 Carbon Dioxide 21 mmol/L (22-30) L 09/17/16 14:50 Anion Gap 12 (5-19) 09/17/16 14:50 BUN 19 mg/dL (7-20) 09/17/16 14:50 Creatinine 0.87 mg/dL (0.52-1.25) 09/17/16 14:50 Est GFR ( Amer) > 60 (>60) 09/17/16 14:50 Est GFR (Non-Af Amer) > 60 (>60) 09/17/16 14:50 Glucose 340 mg/dL (75-110) H 09/17/16 14:50 Calcium 9.2 mg/dL (8.4-10.2) 09/17/16 14:50 Total Bilirubin 1.1 mg/dL (0.2-1.3) 09/17/16 14:50 Direct Bilirubin 0.2 mg/dL (0.0-0.4) 09/17/16 14:50 Indirect Bilirubin Not Reportable 09/17/16 14:50 Neonat Total Bilirubin Not Reportable 09/17/16 14:50 AST 33 U/L (17-59) 09/17/16 14:50 ALT 53 U/L (21-72) 09/17/16 14:50 Alkaline Phosphatase 73 U/L (38-126) 09/17/16 14:50 Creatine Kinase 52 U/L (55-170) L 09/17/16 14:50 CK-MB (CK-2) 1.03 ng/mL (<4.55) 09/17/16 14:50 Troponin I 0.019 ng/mL 09/17/16 14:50 NT-Pro-B Natriuret Pep 4930 pg/mL (<125) H 09/17/16 14:50 Total Protein 6.4 g/dL (6.3-8.2) 09/17/16 14:50 Albumin 3.9 g/dL (3.5-5.0) 09/17/16 14:50 Urine Color STRAW 09/17/16 16:31 Urine Appearance CLEAR 09/17/16 16:31 Urine pH 5.0 (5.0-9.0) 09/17/16 16:31 Ur Specific [place] 1.018 09/17/16 16:31 Urine Protein NEGATIVE mg/dL (NEGATIVE) 09/17/16 16:31 Urine Glucose (UA) >=500 mg/dL (NEGATIVE) H 09/17/16 16:31 Urine Ketones NEGATIVE mg/dL (NEGATIVE) 09/17/16 16:31 Urine Blood NEGATIVE (NEGATIVE) 09/17/16 16:31 Urine Nitrite NEGATIVE (NEGATIVE) 09/17/16 16:31 Urine Bilirubin NEGATIVE (NEGATIVE) 09/17/16 16:31 Urine Urobilinogen NEGATIVE mg/dL (<2.0) 09/17/16 16:31 Ur Leukocyte Esterase NEGATIVE (NEGATIVE) 09/17/16 16:31 Urine Ascorbic Acid NEGATIVE (NEGATIVE) 09/17/16 16:31 Impressions: Chest X-Ray 09/17/16 14:41 IMPRESSION: Findings consistent with mild congestive failure similar to prior study. Assessment & Plan - Diagnosis (1) Acute systolic CHF (congestive heart failure) Is this a current diagnosis for this admission?: YesPlan: Patient will be admitted to [facility]. He will be started on Lasix 20 mg IV every 12 hours. Monitor strict intake and output. Monitor daily weight. Start lisinopril 5 mg daily, Coreg 3.125 mg twice daily. Patient was scheduled to see elementary school music teacher in [facility] associated with [facility] soon. Drug screen was negative for 10/18/2016. Patient has a life vest that was sent home with him during recent hospitalization and [facility]. (2) Diabetes mellitus Qualifiers: Diabetes mellitus type: type 1 Is this a current diagnosis for this admission?: YesPlan: Start Lantus 15 units nightly. Sliding scale insulin. Check hemoglobin A1c. (3) Noncompliance with medication regimen Is this a current diagnosis for this admission?: Yes - Time Time Spent: Greater than 70 Minutes Anticipated discharge: Home Within: within 72 hours - Inpatient Certification Based on my medical assessment, after consideration of the patient's comorbidities, presenting symptoms, or acuity I expect that the services needed warrant INPATIENT care.: Yes I certify that my determination is in accordance with my understanding of Medicare's requirements for reasonable and necessary INPATIENT services [42 CFR 412.3e].: Yes Medical Necessity: Need Close Monitoring Due to Risk of Patient Decompensation
[2016-09-17] MEDS ORDERED: ENOXAPARIN SODIUM INJ 40 MG/0.4 ML DISP.SYRIN SUBCUT ONE (18:30)
[2016-09-17] MEDS: INSULIN LISPRO 100 UNIT/ML 3 ML VIAL SUBCUT PRN (19:23)
--- NOTE | 2016-09-17 20:04 | EKG REPORT ---
SEVERITY:- ABNORMAL ECG - SINUS TACHYCARDIA PROBABLE LEFT ATRIAL ABNORMALITY NONSPECIFIC T ABNORMALITIES, LATERAL LEADS : Confirmed by: Odalys Marley MD 17-Sep-2016 20:04:31
[2016-09-17] MEDS: INSULIN GLARGINE,HUM.REC.ANLOG 300 UNIT/3 ML INSULN.PEN SUBCUT SCH (23:00)
[2016-09-17] MEDS ORDERED: INSULIN GLARGINE,HUM.REC.ANLOG 1,000 UNIT/10 ML UNIT SUBCUT ONE (23:09)
[2016-09-17] MEDS: CARVEDILOL 3.125 MG TABLET PO SCH (23:09)
[2016-09-17] MEDS: FUROSEMIDE INJ/PF 20 MG/2 ML SDV IV SCH (23:10)
[2016-09-18 06:22] LABS: ABSOLUTE BASOPHILS # (AUTO) 0.1 10^3/uL (0.0-0.2); ABSOLUTE EOSINOPHILS # (AUTO) 0.2 10^3/uL (0.0-0.6); ABSOLUTE LYMPHOCYTES (AUTO) 3.9 10^3/uL (0.5-4.7); ABSOLUTE MONOCYTES (AUTO) 0.5 10^3/uL (0.1-1.4); ABSOLUTE NEUT (AUTO) 4.7 10^3/uL (1.7-8.2); EOSINOPHILS % (AUTO) 2.6 % (0-6); HEMATOCRIT 40.5 % (37.9-51.0); HEMOGLOBIN 13.6 g/dL (13.5-17.0); HGB HCT DIFFERENCE 0.3; LYMPHOCYTES % (AUTO) 41.5 % (13-45); MEAN CORPUSCULAR HEMOGLOBIN 32.7 pg (27.0-33.4); MEAN CORPUSCULAR HGB CONC 33.5 g/dL (32.0-36.0); MEAN CORPUSCULAR VOLUME 98 fl (80-97); MONOCYTES % (AUTO) 5.3 % (3-13); RED BLOOD COUNT 4.15 10^6/uL (4.35-5.55); RED CELL DISTRIBUTION WIDTH 13.2 % (11.5-14.0); SEGMENTED NEUTROPHILS % (AUTO) 49.6 % (42-78); WHITE BLOOD COUNT 9.5 10^3/uL (4.0-10.5)
[2016-09-18 06:46] LABS: ANION GAP 12 (5-19); BLOOD UREA NITROGEN 18 mg/dL (7-20); CARBON DIOXIDE 22 mmol/L (22-30); CHLORIDE 106 mmol/L (98-107); CREATININE RESULT 0.76 mg/dL (0.52-1.25); GLUCOSE 172 mg/dL (75-110); MAGNESIUM 1.5 mg/dL (1.6-2.3); POTASSIUM 3.9 mmol/L (3.6-5.0); SODIUM 140.2 mmol/L (137-145)
[2016-09-18 06:56] LABS: FREE T3 4.68 pg/mL (2.77-5.27)
[2016-09-18 07:10] LABS: THYROID STIMULATING HORMONE 0.52 uIU/mL (0.47-4.68)
--- NOTE | 2016-09-18 09:41 | PDOC PROGRESS REPORT ---
Subjective Progress Note for:: 09/18/16 Subjective:: Patient states he continues to have dyspnea. He states he is not able to take of his oxygen without getting very short of breath. He has not had any documented O2 sats less than 94%. Patient denies fever, chills, headache, new focal weakness, chest pain, abdominal pain, nausea, vomiting, diarrhea, constipation. Physical Exam Vital Signs: Temp Pulse Resp BP Pulse Ox 97.2 F 102 H 19 120/89 H 97 09/18/16 08:01 09/18/16 08:01 09/18/16 08:01 09/18/16 08:01 09/18/16 08:01 Intake & Output 09/17/16 09/18/16 09/19/16 06:59 06:59 06:59 Intake Total 12 Output Total 1175 Balance -1163 Weight 97.1 kg GENERAL: No acute distress HEENT: Conjunctiva clear, nonicteric, moist mucous membranes, no JVD, midline trachea RESPIRATORY: Clear to auscultation bilaterally, no wheezes, no rhonchi CARDIAC: Regular rate and rhythm, no murmurs/gallops/rubs ABDOMEN: Soft, nondistended, nontender, positive bowel sounds, no rebound, no guarding EXTREMETIES: Trace edema NEUROLOGIC: Alert, oriented to person/place/time, CN's grossly intact, no focal deficits SKIN: No rash, wounds PSYCH: Normal mood, normal affect Results Laboratory Results: 09/18/16 05:22 09/18/16 05:22 09/18/16 09/18/16 09/18/16 05:22 05:22 05:22 WBC 9.5 RBC 4.15 L Hgb 13.6 Hct 40.5 MCV 98 H MCH 32.7 MCHC 33.5 RDW 13.2 Plt Count 259 Seg Neutrophils % 49.6 Lymphocytes % 41.5 Monocytes % 5.3 Eosinophils % 2.6 Basophils % 1.0 Absolute Neutrophils 4.7 Absolute Lymphocytes 3.9 Absolute Monocytes 0.5 Absolute Eosinophils 0.2 Absolute Basophils 0.1 Sodium 140.2 Potassium 3.9 Chloride 106 Carbon Dioxide 22 Anion Gap 12 BUN 18 Creatinine 0.76 Est GFR ( Amer) > 60 Est GFR (Non-Af Amer) > 60 Glucose 172 H Calcium 9.0 Magnesium 1.5 L TSH 0.52 Free T4 1.44 Free T3 pg/mL 4.68 09/17/16 20:27 Troponin I 0.020 Assessment & Plan - Diagnosis (1) Acute systolic CHF (congestive heart failure) Is this a current diagnosis for this admission?: YesPlan: Continue Lasix 20 mg IV every 12 hours. Monitor strict intake and output. Monitor daily weight. Continue lisinopril 5 mg daily, Coreg 3.125 mg twice daily. Patient was scheduled to see bioprocess engineer in [facility] associated with [facility] soon. Drug screen was negative for 10/18/2016. Patient has a life vest that was sent home with him during recent hospitalization and [facility]. (2) Diabetes mellitus Qualifiers: Diabetes mellitus type: type 1 Is this a current diagnosis for this admission?: YesPlan: Continue Lantus 15 units nightly. Sliding scale insulin. Hemoglobin A1c 9.5. (3) Noncompliance with medication regimen Is this a current diagnosis for this admission?: Yes - Time Time Spent with patient: 25-34 minutes Anticipated discharge: Home Within: within 24 hours Disposition: Patient is planning to move to [place] next week with family members. He states he is applying for health insurance and [place].
[2016-09-18] MEDS: CARVEDILOL 3.125 MG TABLET PO SCH ×2 (10:30→22:10)
[2016-09-18] MEDS: LISINOPRIL 5 MG TABLET PO SCH (10:30)
[2016-09-18] MEDS: FUROSEMIDE INJ/PF 20 MG/2 ML SDV IV SCH ×2 (10:31→22:11)
[2016-09-18] MEDS: ENOXAPARIN SODIUM INJ 40 MG/0.4 ML DISP.SYRIN SUBCUT SCH (10:31)
[2016-09-18] MEDS: INSULIN LISPRO 100 UNIT/ML 3 ML VIAL SUBCUT PRN ×2 (13:33→17:25)
[2016-09-18] MEDS: INSULIN GLARGINE,HUM.REC.ANLOG 300 UNIT/3 ML INSULN.PEN SUBCUT SCH (23:40)
[2016-09-19 07:28] LABS: ABSOLUTE BASOPHILS # (AUTO) 0.1 10^3/uL (0.0-0.2); ABSOLUTE EOSINOPHILS # (AUTO) 0.3 10^3/uL (0.0-0.6); ABSOLUTE LYMPHOCYTES (AUTO) 3.2 10^3/uL (0.5-4.7); ABSOLUTE MONOCYTES (AUTO) 0.6 10^3/uL (0.1-1.4); ABSOLUTE NEUT (AUTO) 4.5 10^3/uL (1.7-8.2); BASOPHILS % (AUTO) 1.1 % (0-2); EOSINOPHILS % (AUTO) 2.9 % (0-6); HEMATOCRIT 39.4 % (37.9-51.0); HEMOGLOBIN 13.4 g/dL (13.5-17.0); HGB HCT DIFFERENCE 0.8; LYMPHOCYTES % (AUTO) 36.4 % (13-45); MEAN CORPUSCULAR HEMOGLOBIN 33.2 pg (27.0-33.4); MEAN CORPUSCULAR VOLUME 98 fl (80-97); MONOCYTES % (AUTO) 7.4 % (3-13); RED BLOOD COUNT 4.03 10^6/uL (4.35-5.55); RED CELL DISTRIBUTION WIDTH 13.8 % (11.5-14.0); SEGMENTED NEUTROPHILS % (AUTO) 52.2 % (42-78); WHITE BLOOD COUNT 8.7 10^3/uL (4.0-10.5)
[2016-09-19 07:49] LABS: ANION GAP 13 (5-19); BLOOD UREA NITROGEN 18 mg/dL (7-20); CARBON DIOXIDE 22 mmol/L (22-30); CHLORIDE 105 mmol/L (98-107); CREATININE RESULT 0.72 mg/dL (0.52-1.25); GLUCOSE 157 mg/dL (75-110); SODIUM 139.5 mmol/L (137-145)
[2016-09-19] MEDS: ENOXAPARIN SODIUM INJ 40 MG/0.4 ML DISP.SYRIN SUBCUT SCH (09:36)
[2016-09-19] MEDS: CARVEDILOL 3.125 MG TABLET PO SCH ×2 (09:38→21:59)
[2016-09-19] MEDS: LISINOPRIL 5 MG TABLET PO SCH (09:38)
[2016-09-19] MEDS: POTASSIUM CHLORIDE 10 MEQ TABLET.SA PO SCH (09:38)
[2016-09-19] MEDS ORDERED: FUROSEMIDE 40 MG TABLET PO SCH (10:00)
--- NOTE | 2016-09-19 12:09 | PDOC PROGRESS REPORT ---
Subjective Progress Note for:: 09/19/16 Subjective:: Patient is seen on morning rounds. He is resting in bed off oxygen. He states he feels "so,so.." He states he still feels short of breath with minimal exertion, such as walking to the bathroom. He has no lower extremity edema any longer. He is oxygenating well on room air. We discussed plans for discharge probably tomorrow. We will transition his Lasix to by mouth today from IV. Current medications are all available on the [employer] ([facility]) $4 prescription list. He plans to move to part of next week to be with family. Physical Exam Vital Signs: Temp Pulse Resp BP Pulse Ox 97.5 F 98 20 108/85 100 09/19/16 07:38 09/19/16 07:38 09/19/16 07:38 09/19/16 07:38 09/19/16 07:38 Intake & Output 09/18/16 09/19/16 09/20/16 06:59 06:59 06:59 Intake Total 12 1956 Output Total 1175 2800 Balance -1163 -844 Weight 97.1 kg 97.5 kg General appearance: PRESENT: no acute distress, well-developed, well-nourished Head exam: PRESENT: atraumatic, normocephalic Eye exam: PRESENT: conjunctiva pink, EOMI, PERRLA. ABSENT: scleral icterus Ear exam: PRESENT: normal external ear exam Mouth exam: PRESENT: moist, tongue midline Neck exam: ABSENT: carotid bruit, JVD, lymphadenopathy, thyromegaly Respiratory exam: PRESENT: clear to auscultation david. ABSENT: rales, rhonchi, wheezes Cardiovascular exam: PRESENT: RRR. ABSENT: diastolic murmur, rubs, systolic murmur Pulses: PRESENT: normal dorsalis pedis pul Vascular exam: PRESENT: normal capillary refill GI/Abdominal exam: PRESENT: normal bowel sounds, soft. ABSENT: distended, guarding, mass, organolmegaly, rebound, tenderness Rectal exam: PRESENT: deferred Extremities exam: PRESENT: full ROM. ABSENT: calf tenderness, clubbing, pedal edema Musculoskeletal exam: PRESENT: ambulatory, full ROM, normal inspection Neurological exam: PRESENT: alert, awake, oriented to person, oriented to place , oriented to time, oriented to situation, CN II-XII grossly intact. ABSENT: motor sensory deficit Psychiatric exam: PRESENT: anxious, appropriate affect, normal mood. ABSENT: homicidal ideation, suicidal ideation Skin exam: PRESENT: dry, intact, warm. ABSENT: cyanosis, rash Results Laboratory Results: 09/19/16 06:27 09/19/16 06:27 09/19/16 09/19/16 06:27 06:27 WBC 8.7 RBC 4.03 L Hgb 13.4 L Hct 39.4 MCV 98 H MCH 33.2 MCHC 34.0 RDW 13.8 Plt Count 222 Seg Neutrophils % 52.2 Lymphocytes % 36.4 Monocytes % 7.4 Eosinophils % 2.9 Basophils % 1.1 Absolute Neutrophils 4.5 Absolute Lymphocytes 3.2 Absolute Monocytes 0.6 Absolute Eosinophils 0.3 Absolute Basophils 0.1 Sodium 139.5 Potassium 4.0 Chloride 105 Carbon Dioxide 22 Anion Gap 13 BUN 18 Creatinine 0.72 Est GFR ( Amer) > 60 Est GFR (Non-Af Amer) > 60 Glucose 157 H Calcium 9.0 09/17/16 09/19/16 20:27 06:27 Troponin I 0.020 NT-Pro-B Natriuret Pep 2450 H Impressions: Chest X-Ray 09/19/16 06:00 IMPRESSION: No interval change in the chest. Cardiomegaly and central vascular congestion. Assessment & Plan - Diagnosis (1) Acute systolic CHF (congestive heart failure) Is this a current diagnosis for this admission?: YesPlan: Patient with an ejection fraction of 20% on last echocardiogram. He has been noncompliant with medications in the past. He states he understands the seriousness of his disease at this present time. He is vowing to become compliant with treatment. He has a LifeVest from [facility]. He will need to follow up with cardiology for possible ICD insertion. (2) Diabetes mellitus Qualifiers: Diabetes mellitus type: type 1 Diabetes mellitus complication status: with hyperglycemia Qualified Code(s): E10.65 - Type 1 diabetes mellitus with hyperglycemia Is this a current diagnosis for this admission?: YesPlan: Blood glucose has been well maintained on his current dose of Lantus insulin. (3) Noncompliance with medication regimen Is this a current diagnosis for this admission?: YesPlan: This has been stressed with him multiple times, his need for compliance with medical plan if he is to stay well and out of the hospital. - Time Time Spent with patient: 25-34 minutes Critical Time spent with patient: 25-34 minutes Medications reviewed and adjusted accordingly: Yes Anticipated discharge: Home Within: within 24 hours
[2016-09-19] MEDS: INSULIN LISPRO 100 UNIT/ML 3 ML VIAL SUBCUT PRN (21:59)
[2016-09-19] MEDS: INSULIN GLARGINE,HUM.REC.ANLOG 300 UNIT/3 ML INSULN.PEN SUBCUT SCH (21:59)
[2016-09-20 08:47] VITALS: BP 115/85
[2016-09-20] MEDS ORDERED: CARVEDILOL 3.125 MG TABLET PO SCH (09:00)
[2016-09-20] MEDS ORDERED: FUROSEMIDE 40 MG TABLET PO SCH (09:00)
[2016-09-20] MEDS: LISINOPRIL 5 MG TABLET PO SCH (09:05)
[2016-09-20] MEDS: ENOXAPARIN SODIUM INJ 40 MG/0.4 ML DISP.SYRIN SUBCUT SCH (09:06)
[2016-09-20] MEDS: POTASSIUM CHLORIDE 10 MEQ TABLET.SA PO SCH (09:06)
--- NOTE | 2016-09-20 14:03 | PDOC DISCHARGE SUMMARY ---
General - Admit/Disc Date/PCP Admission Date/Primary Care Provider: 09/17/16 17:14 Discharge Date: 09/20/16 - Discharge Diagnosis (1) Acute systolic CHF (congestive heart failure) Is this a current diagnosis for this admission?: YesSummary: Stable, euvolemic at the present time. He has been aggressively diuresed. He will be discharged on Coreg, lisinopril, Lasix and aspirin. He was given a LifeVest by [facility] at discharge 2 weeks ago. He states he plans to move to [place] next week with his brother he will need to find heating technician at that time. He states he will be compliant with medications now that he can afford them. (2) Diabetes mellitus Is this a current diagnosis for this admission?: YesSummary: Patient is been stable on Lantus 15 units subcutaneous at bedtime. He was given Lantus pen to take home as well as a new prescription once he gets his medical assistance in [place] to be filled. (3) Noncompliance with medication regimen Is this a current diagnosis for this admission?: YesSummary: This was discussed at length with him he claims he will be compliant now that he can get $4 medications from [facility] until he gets his insurance. - Additional Information Resuscitation Status: Full Code Discharge Diet: Cardiac, Diabetic Discharge Activity: Activity As Tolerated, Balance Activity w/Rest, Weigh Daily Home Medications: Acetaminophen [Tylenol 325 mg Tablet] 650 mg PO Q4HP PRN tablet 09/20/16 Carvedilol [Coreg 6.25 mg Tablet] 6.25 mg PO Q12 #60 tablet 09/20/16 Furosemide [Lasix] 20 mg PO DAILY #30 tablet 09/20/16 Insulin Glargine,Hum.rec.anlog [Lantus Insulin 100 Unit/mL] 15 unit SUBCUT QHS # 10 insuln.pen 09/20/16 Lisinopril [Prinivil 5 mg Tablet] 5 mg PO DAILY #30 tablet 09/20/16 Pen Needle, Diabetic [Insulin Pen Needle] 1 each MC DAILY #10 dis.needle History of Present Illness Patient complains of: SOB and dyspnea History of Present Illness: CLARENCE DIAZ JR is a 36 year old male with past medical history of idiopathic cardiomyopathy resulting in systolic congestive heart failure with a recently documented ejection fraction of [facility] presents to the emergency department with 3 day history of increasing shortness of breath, nausea, vomiting, paroxysmal nocturnal dyspnea, dyspnea on exertion. As mentioned patient was recently discharged from [facility] for acute CHF. He has not been taking any of his medications secondary to financial reasons. He states he is going to be moving to [place] next week with family and is in the process of applying for health insurance in [place]. In further discussion with patient it sounds like he has had cardiomyopathy for at least the past 3 years. He had a cardiac catheterization in 2013 in [place] with EF of 40% at the time. He has not taken any medications for that. He states he is also not been taking her diabetes medicines. Patient presents wearing a life vest that was given to him by [facility]. Patient states that he has done a lot of reading and is taking his conditions very seriously since being discharged from [facility]. When I asked him if he is taking any of his medications he responded "no". Hospital Course Hospital Course: Patient was admitted to the hospitalist service on telemetry and IMCU. He was aggressively diuresed with 40 mg of IV Lasix twice daily. Cardiology was consulted to assist with his care. Dr. Gonzalez, saw the patient in consult. His heart failure medications were adjusted. Over the next 2 days he greatly improved. He was able to be weaned from oxygen. We discussed need for him to be compliant with diet, medications, insulin therapy and lifestyle choices. He received education from dietary, as well as chronic disease management. He will be discharged home with family. He plans to move to [place] next week with his brother. Physical Exam Vital Signs: Temp Pulse Resp BP Pulse Ox 97.4 F 110 H 16 115/85 100 09/20/16 08:03 09/20/16 08:03 09/20/16 08:03 09/20/16 08:03 09/20/16 08:03 Intake & Output 09/19/16 09/20/16 09/21/16 06:59 06:59 06:59 Intake Total 2433 1294 Output Total 4680 2295 Balance -844 -481 Weight 97.5 kg 100.2 kg General appearance: PRESENT: no acute distress, well-developed, well-nourished Head exam: PRESENT: atraumatic, normocephalic Eye exam: PRESENT: conjunctiva pink, EOMI, PERRLA. ABSENT: scleral icterus Ear exam: PRESENT: normal external ear exam Mouth exam: PRESENT: moist, tongue midline Neck exam: ABSENT: carotid bruit, JVD, lymphadenopathy, thyromegaly Respiratory exam: PRESENT: clear to auscultation david. ABSENT: rales, rhonchi, wheezes Cardiovascular exam: PRESENT: RRR. ABSENT: diastolic murmur, rubs, systolic murmur Pulses: PRESENT: normal dorsalis pedis pul Vascular exam: PRESENT: normal capillary refill GI/Abdominal exam: PRESENT: normal bowel sounds, soft. ABSENT: distended, guarding, mass, organolmegaly, rebound, tenderness Rectal exam: PRESENT: deferred Extremities exam: PRESENT: full ROM. ABSENT: calf tenderness, clubbing, pedal edema Neurological exam: PRESENT: alert, awake, oriented to person, oriented to place , oriented to time, oriented to situation, CN II-XII grossly intact. ABSENT: motor sensory deficit Psychiatric exam: PRESENT: appropriate affect, normal mood. ABSENT: homicidal ideation, suicidal ideation Skin exam: PRESENT: dry, intact, warm. ABSENT: cyanosis, rash Results Laboratory Results: 09/19/16 06:27 09/19/16 06:27 09/17/16 09/19/16 20:27 06:27 Troponin I 0.020 NT-Pro-B Natriuret Pep 2450 H Impressions: Chest X-Ray 09/20/16 06:00 IMPRESSION: CARDIAC ENLARGEMENT. VASCULAR CONGESTION. No improvement since the last previous exam. Qualifiers PATEINT BEING DISCHARGED WITH ANY OF THE FOLLOWING DIAGNOSIS?: Heart Failure HF Pt being discharged on ACEI for LVEF less than 40%?: Yes HF Pt being discharged on ARBS for LVEF less than 40%?: No Reason(s) for not prescribing ARBS:: Tx not tolerated HF Pt discharged on evidence-based Beta Gita:: Yes Plan Discharge Plan: Home with family. Will need close follow up by cardiology once insurance is available Time Spent: Less than 30 Minutes
== END 2016-09-20 09:41 | disposition home or self-care (01) | DRG 292 ==
LOC: ER 14:14 → UNDOADMIN 17:01 → EH 17:01 → 3W 22:13
DX: I50.21 Acute systolic (congestive) heart failure (principal); I42.8 Other cardiomyopathies; E10.65 Type 1 diabetes mellitus with hyperglycemia; E10.9 Type 1 diabetes mellitus without complications; Z90.49 Acquired absence of other specified parts of digestive tract; Z87.891 Personal history of nicotine dependence; Z88.6 Allergy status to analgesic agent; Z91.030 Bee allergy status; Z91.018 Allergy to other foods; Z91.19 Patient's noncompliance with other medical treatment and regimen; Z79.4 Long term (current) use of insulin; Z79.82 Long term (current) use of aspirin; Z79.899 Other long term (current) drug therapy
CPT/HCPCS: 36415; 71010; 80048; 80053; 81001; 82550; 82553; 82962; 83036; 83735; 83880; 84439; 84443; 84481; 84484; 85025; 93005; 93010; 96374; 99291; J1650; J1815; J1940; J3490

== ENCOUNTER 2016-09-22 04:46 | Observation (INO) | payer SELFPAY ==
[2016-09-22 05:14] LABS: ABSOLUTE BASOPHILS # (AUTO) 0.1 10^3/uL (0.0-0.2); ABSOLUTE EOSINOPHILS # (AUTO) 0.1 10^3/uL (0.0-0.6); ABSOLUTE LYMPHOCYTES (AUTO) 2.6 10^3/uL (0.5-4.7); ABSOLUTE MONOCYTES (AUTO) 0.7 10^3/uL (0.1-1.4); ABSOLUTE NEUT (AUTO) 5.3 10^3/uL (1.7-8.2); BASOPHILS % (AUTO) 0.7 % (0-2); EOSINOPHILS % (AUTO) 1.2 % (0-6); HEMATOCRIT 40.4 % (37.9-51.0); HEMOGLOBIN 13.7 g/dL (13.5-17.0); HGB HCT DIFFERENCE 0.7; LYMPHOCYTES % (AUTO) 29.9 % (13-45); MEAN CORPUSCULAR HEMOGLOBIN 33.1 pg (27.0-33.4); MEAN CORPUSCULAR HGB CONC 33.9 g/dL (32.0-36.0); MEAN CORPUSCULAR VOLUME 98 fl (80-97); MONOCYTES % (AUTO) 8.2 % (3-13); RED BLOOD COUNT 4.15 10^6/uL (4.35-5.55); RED CELL DISTRIBUTION WIDTH 13.8 % (11.5-14.0); WHITE BLOOD COUNT 8.8 10^3/uL (4.0-10.5)
[2016-09-22 05:32] LABS: ANION GAP 12 (5-19); BLOOD UREA NITROGEN 19 mg/dL (7-20); CARBON DIOXIDE 20 mmol/L (22-30); CHLORIDE 105 mmol/L (98-107); CREATINE KINASE 51 U/L (55-170); CREATININE RESULT 0.84 mg/dL (0.52-1.25); GLUCOSE 260 mg/dL (75-110); POTASSIUM 4.5 mmol/L (3.6-5.0); SODIUM 137.3 mmol/L (137-145)
[2016-09-22] MEDS ORDERED: LISINOPRIL 5 MG TABLET PO ONE (05:34)
[2016-09-22] MEDS ORDERED: CARVEDILOL 6.25 MG TABLET PO ONE (05:34)
--- NOTE | 2016-09-22 05:39 | ER Document Report ---
ED Respiratory Problem - General Chief Complaint: Shortness Of Breath Stated Complaint: DIFFICULTY BREATHING Mode of Arrival: Medic Information source: Patient Notes: Patient states he was just discharged from the hospital 2 days ago. Patient states that he has had persistent abdominal pain since his discharge. Patient states that he has had difficulty sleeping due to his shortness of breath whenever he tries to lay down. Patient states that he has been unable to keep any fluids down and vomits every time he drinks water. Patient denies any urinary symptoms or fever. Patient does complain of a nonproductive cough. Patient has a history of congestive heart failure and is supposed to wear a LifeVest although states that the batteries were not charged and he left it at home. Patient states that he did not get his medications filled that he was prescribed at discharge although he has been taking his Lasix every day. Patient states that he was up last night because he couldn't sleep due to shortness of breath and he was thirsty so he decided to walk to the store. Patient states that while he was walking shortness of breath worsened and then he started to develop chest pain. Patient states that he thinks he may sat down to rest and passed out. Patient states that somebody called EMS. TRAVEL OUTSIDE OF THE [place] IN LAST 30 DAYS: No - HPI Patient complains to provider of: Chest pain, CHF, Cough, Short of breath Onset: Just prior to arrival - Chest pain this morning Duration: Continuous Quality of pain: Burning Context: Hx CHF. denies: Recent long distance trvl, Recent immobilization Chest pain/discomfort: Center Cough: Nonproductive Similar symptoms previously: Yes Recently seen / treated by doctor: Yes - Related Data Allergies/Adverse Reactions: morphine Allergy (Verified 09/22/16 05:42) tomato Allergy (Verified 09/22/16 05:42) venom-honey bee [bee venom (honey bee)] Allergy (Verified 09/22/16 05:42) Past Medical History - General Information source: Patient - Social History Smoking Status: Former Smoker Chew tobacco use (# tins/day): No Frequency of alcohol use: None Drug Abuse: None Occupation: none Lives with: Alone Family History: CAD - Past Medical History Cardiac Medical History: Reports: Hx Congestive Heart Failure Pulmonary Medical History: Reports: Hx Asthma Endocrine Medical History: Reports: Hx Diabetes Mellitus Type 2 Renal/ Medical History: Denies: Hx Peritoneal Dialysis Past Surgical History: Reports: Hx Appendectomy, Hx Orthopedic Surgery - Bilateral knees, R ankle - Immunizations Hx Diphtheria, Pertussis, Tetanus Vaccination: Yes Review of Systems - Review of Systems Constitutional: No symptoms reported. denies: Fever, Recent illness EENT: No symptoms reported Cardiovascular: Chest pain, Syncope Respiratory: Cough, Short of breath Gastrointestinal: Abdominal pain, Nausea, Vomiting. denies: Diarrhea Genitourinary: No symptoms reported. denies: Dysuria, Flank pain Male Genitourinary: No symptoms reported Musculoskeletal: No symptoms reported. denies: Back pain Skin: No symptoms reported Hematologic/Lymphatic: No symptoms reported Neurological/Psychological: Lost consciousness Physical Exam - Vital signs Vitals: Temp Pulse Resp BP Pulse Ox 97.8 F 115 H 26 H 117/95 H 97 09/22/16 04:50 09/22/16 04:50 09/22/16 04:50 09/22/16 04:50 09/22/16 04:50 - General General appearance: Alert In distress: Mild - HEENT Head: Normocephalic, Atraumatic Eyes: Periorbital edema Nasal: Normal Mouth/Lips: Normal Pharynx: Normal Neck: Normal, Supple. No: Lymphadenopathy - Respiratory Respiratory status: Tachypnea Chest status: Nontender Breath sounds: Nonproductive cough, Rales Chest palpation: Normal - Cardiovascular Rhythm: Tachycardia Heart sounds: S1 appreciated, S2 appreciated - Abdominal Inspection: Normal Distension: No distension Bowel sounds: Normal Tenderness: Tender - Generalized abdominal tenderness Organomegaly: No organomegaly - Back Back: Normal, Nontender. No: CVA tenderness - Extremities General upper extremity: Normal inspection, Normal ROM General lower extremity: Edema - 1+, Normal ROM - Neurological Neuro grossly intact: Yes Cognition: Normal Starr Coma Scale Eye Opening: Spontaneous Brick Coma Scale Verbal: Oriented Brick Coma Scale Motor: Obeys Commands Brick Coma Scale Total: 15 - Psychological Associated symptoms: Normal affect, Normal mood - Skin Skin Temperature: Warm Skin Moisture: Dry Skin Color: Pale Course - Re-evaluation Re-evalutation: 09/22/16 05:39 Provider in room, patient sitting there disconnected from blood pressure cuff as well as cardiac nurse. Provider surgery to reattach patient and patient states that he new he was concerned that x-ray so he decided to disconnet his cables because he knows "how this works" and he was trying to help facilitate getting himself over to x-ray. Patient advised not to disconnect himself from the monitor. 09/22/16 05:[address] Brambila regarding patient presentation, discussed management, recommends giving patient his dose of Coreg as well as lisinopril. 09/22/16 06:03 reviewed diagnostic test results as well as chest x-ray with Dr. Brambila, recommends giving patient Lasix 20 mg IV. 09/22/16 07:29 Patient states chest pain is resolved but he still complains of some abdominal tenderness. Patient states he just wants to get some sleep. 09/22/16 07:33 Consulted with Lara Drummond NP who agrees to accept patient to telemetry to Dr Yessica green. - Vital Signs Vital signs: Temp Pulse Resp BP Pulse Ox 97.8 F 115 H 18 112/89 H 97 09/22/16 04:50 09/22/16 04:50 09/22/16 07:13 09/22/16 07:13 09/22/16 07:13 - Laboratory Result Diagrams: 09/22/16 04:55 09/22/16 04:55 Laboratory results interpreted by me: 09/22/16 09/22/16 09/22/16 04:55 04:55 04:55 RBC 4.15 L MCV 98 H Carbon Dioxide 20 L Glucose 260 H Creatine Kinase 51 L NT-Pro-B Natriuret Pep 3590 H Total Protein Urine Protein Urine Glucose (UA) 09/22/16 09/22/16 04:55 05:11 RBC MCV Carbon Dioxide Glucose Creatine Kinase NT-Pro-B Natriuret Pep Total Protein 6.2 L Urine Protein 100 H Urine Glucose (UA) >=500 H 09/22/16 07:36 Labs- Entire Visit 09/22/16 09/22/16 09/22/16 04:55 04:55 04:55 WBC 8.8 RBC 4.15 L Hgb 13.7 Hct 40.4 MCV 98 H MCH 33.1 MCHC 33.9 RDW 13.8 Plt Count 274 Seg Neutrophils % 60.0 Lymphocytes % 29.9 Monocytes % 8.2 Eosinophils % 1.2 Basophils % 0.7 Absolute Neutrophils 5.3 Absolute Lymphocytes 2.6 Absolute Monocytes 0.7 Absolute Eosinophils 0.1 Absolute Basophils 0.1 Sodium 137.3 Potassium 4.5 Chloride 105 Carbon Dioxide 20 L Anion Gap 12 BUN 19 Creatinine 0.84 Est GFR ( Amer) > 60 Est GFR (Non-Af Amer) > 60 Glucose 260 H Calcium 9.0 Total Bilirubin Direct Bilirubin Indirect Bilirubin Neonat Total Bilirubin AST ALT Alkaline Phosphatase Creatine Kinase 51 L Troponin I 0.031 NT-Pro-B Natriuret Pep 3590 H Total Protein Albumin Lipase Urine Color Urine Appearance Urine pH Ur Specific [place] Urine Protein Urine Glucose (UA) Urine Ketones Urine Blood Urine Nitrite Urine Bilirubin Urine Urobilinogen Ur Leukocyte Esterase Urine WBC (Auto) Urine RBC (Auto) U Hyaline Cast (Auto) Squamous Epi Cells Auto Urine Mucus (Auto) Urine Ascorbic Acid Urine Opiates Screen Urine Methadone Screen Ur Barbiturates Screen Ur Phencyclidine Scrn Ur Amphetamines Screen U Benzodiazepines Scrn Urine Cocaine Screen U Marijuana (THC) Screen 09/22/16 09/22/16 09/22/16 04:55 05:11 05:11 WBC RBC Hgb Hct MCV MCH MCHC RDW Plt Count Seg Neutrophils % Lymphocytes % Monocytes % Eosinophils % Basophils % Absolute Neutrophils Absolute Lymphocytes Absolute Monocytes Absolute Eosinophils Absolute Basophils Sodium Potassium Chloride Carbon Dioxide Anion Gap BUN Creatinine Est GFR ( Amer) Est GFR (Non-Af Amer) Glucose Calcium Total Bilirubin 1.2 Direct Bilirubin 0.4 Indirect Bilirubin Not Reportable Neonat Total Bilirubin Not Reportable AST 31 ALT 59 Alkaline Phosphatase 69 Creatine Kinase Troponin I NT-Pro-B Natriuret Pep Total Protein 6.2 L Albumin 3.6 Lipase 101.9 Urine Color YELLOW Urine Appearance CLEAR Urine pH 5.0 Ur Specific [place] 1.028 Urine Protein 100 H Urine Glucose (UA) >=500 H Urine Ketones NEGATIVE Urine Blood NEGATIVE Urine Nitrite NEGATIVE Urine Bilirubin NEGATIVE Urine Urobilinogen NEGATIVE Ur Leukocyte Esterase NEGATIVE Urine WBC (Auto) 5 Urine RBC (Auto) 0 U Hyaline Cast (Auto) 161 Squamous Epi Cells Auto <1 Urine Mucus (Auto) OCC Urine Ascorbic Acid NEGATIVE Urine Opiates Screen NEGATIVE Urine Methadone Screen NEGATIVE Ur Barbiturates Screen NEGATIVE Ur Phencyclidine Scrn NEGATIVE Ur Amphetamines Screen NEGATIVE U Benzodiazepines Scrn NEGATIVE Urine Cocaine Screen NEGATIVE U Marijuana (THC) Screen NEGATIVE - Diagnostic Test Radiology reviewed: Reports reviewed Discharge - Discharge Clinical Impression: Acute systolic CHF (congestive heart failure), Noncompliance with medication regimen, chest pain resolved Diabetes mellitus Qualifiers: Diabetes mellitus type: type 1 Diabetes mellitus complication status: with hyperglycemia Qualified Code(s): E10.65 - Type 1 diabetes mellitus with hyperglycemia Nausea and vomiting Qualifiers: Vomiting type: unspecified Vomiting Intractability: non-intractable Qualified Code(s): R11.2 - Nausea with vomiting, unspecified Dyspnea Qualifiers: Dyspnea type: unspecified Qualified Code(s): R06.00 - Dyspnea, unspecified Condition: Fair Admitting Provider: Hospitalist Unit Admitted: Telemetry
[2016-09-22 05:45] LABS: TROPONIN I 0.031 ng/mL
[2016-09-22 06:01] LABS: APPEARANCE,URINE CLEAR; BILIRUBIN,URINE NEGATIVE (NEGATIVE); GLUCOSE, URINE >=500 mg/dL (NEGATIVE); KETONES,URINE NEGATIVE (NEGATIVE); LEUKOCYTE ESTERASE,URINE NEGATIVE (NEGATIVE); NITRITE,URINE NEGATIVE (NEGATIVE); PROTEIN,URINE 100 mg/dL (NEGATIVE); URINE SPECIFIC GRAVITY 1.028; UROBILINOGEN,URINE NEGATIVE mg/dL (<2.0)
[2016-09-22] MEDS ORDERED: FUROSEMIDE INJ/PF 20 MG/2 ML SDV IV ONE ×2 (06:03→07:37)
[2016-09-22 06:05] LABS: URINE BARBITURATES SCREEN NEGATIVE; URINE METHADONE SCREEN NEGATIVE; URINE OPIATES LOW NEGATIVE; URINE PHENCYCLIDINE SCREEN NEGATIVE
[2016-09-22] MEDS ORDERED: ONDANSETRON HCL INJ/PF 4 MG/2 ML SDV IV ONE (06:12)
[2016-09-22] MEDS ORDERED: ASPIRIN 81 MG TABLET, CHEWABLE PO ONE (06:40)
[2016-09-22 06:47] LABS: ADD ON TESTING BLD IN LAB ACKNOWLEDGE
[2016-09-22 07:18] LABS: ALANINE AMINOTRANSFERASE 59 U/L (21-72); ALBUMIN 3.6 g/dL (3.5-5.0); ALKALINE PHOSPHATASE 69 U/L (38-126); ASPARTATE AMINO TRANSFERASE 31 U/L (17-59); BILIRUBIN,DIRECT 0.4 mg/dL (0.0-0.4); BILIRUBIN,TOTAL 1.2 mg/dL (0.2-1.3); LIPASE 101.9 U/L (23-300); TOTAL PROTEIN 6.2 g/dL (6.3-8.2)
[2016-09-22] MEDS ORDERED: ONDANSETRON HCL INJ/PF 4 MG/2 ML SDV IV PRN (08:37)
[2016-09-22] MEDS ORDERED: DEXTROSE 50%-WATER 25 GM/50 ML DISP.SYRIN IV PRN ×2 (08:42)
[2016-09-22] MEDS ORDERED: ACETAMINOPHEN 325 MG TABLET PO PRN (08:42)
[2016-09-22] MEDS ORDERED: DEXTROSE 40% GEL 15 GM TUBE PO PRN ×2 (08:42)
[2016-09-22] MEDS ORDERED: GLUCAGON,HUMAN RECOMB 1 MG INJ IM PRN (08:42)
[2016-09-22] MEDS ORDERED: FUROSEMIDE 20 MG TABLET PO SCH (10:00)
[2016-09-22] MEDS ORDERED: FUROSEMIDE 40 MG TABLET PO SCH (10:00)
--- NOTE | 2016-09-22 10:42 | EKG REPORT ---
SEVERITY:- ABNORMAL ECG - SINUS TACHYCARDIA PROBABLE LEFT ATRIAL ABNORMALITY LOW VOLTAGE IN FRONTAL LEADS NONSPECIFIC T ABNORMALITIES, LATERAL LEADS LVH : Confirmed by: Marlen Gonzalez 22-Sep-2016 10:42:00
[2016-09-22] MEDS: LISINOPRIL 5 MG TABLET PO SCH (14:25)
[2016-09-22] MEDS: CARVEDILOL 6.25 MG TABLET PO SCH ×2 (14:25→21:38)
[2016-09-22] MEDS: INSULIN LISPRO 100 UNIT/ML 3 ML VIAL SUBCUT PRN ×2 (15:41→18:16)
[2016-09-22] MEDS: HEPARIN SOD (PORCINE) 5,000 UNIT/ML 1 ML SYRINGE SUBCUT SCH ×2 (15:42→21:38)
--- NOTE | 2016-09-22 17:47 | PDOC H&P ---
History of Present Illness Admission Date/PCP: 09/22/16 08:38 Patient complains of: Shortness of breath and vomiting History of Present Illness: CLARENCE DIAZ JR is a 36 year old male known to our service, having been recently discharged from the hospital 2 days ago. Presented to [facility] emergency room early this morning via EMS, after having shortness of breath, vomiting and syncope while walking to the store. Patient was admitted with acute on chronic systolic heart failure with EF of 20%. He had been evaluated at [facility] 2 weeks prior. He was found to have nonischemic cardiomyopathy with an EF of 20%. He was discharged with medications and a LifeVest. Patient failed to take any of the medications that he was discharged with, he therefore presented 1 week ago with increasing shortness of breath and heart failure symptoms. He also is a type I diabetic. He has not taken his insulin for some time. The patient during his past hospitalization was given Coreg, lisinopril and furosemide prescriptions. All which were on the [employer] $4 list. He was given a Lantus pen at discharge, until he could be seen by the [facility]. He failed to take any of his prescribed medications. Chest x-ray today shows an enlarged heart but no overt heart failure fluid volume overload. He states he's unable to keep any liquids down. He has been vomiting for 24 hours. Past Medical History Cardiac Medical History: Reports: Congestive Heart Failure Pulmonary Medical History: Reports: Asthma Endocrine Medical History: Reports: Diabetes Mellitus Type 1 Renal/ Medical History: Reports: None Musculoskeltal Medical History: Reports: None Skin Medical History: Reports: None Psychiatric Medical History: Denies: Depression Traumatic Medical History: Reports: None Hematology: Reports: None Infectious Medical History: Reports: None Past Surgical History Past Surgical History: Reports: Appendectomy, Orthopedic Surgery - Bilateral knees, R ankle Social History Information Source: Patient Lives with: Alone Smoking Status: Former Smoker Number of Years Smokin Last Time Smoked: 7 years Frequency of Alcohol Use: Rare Hx Recreational Drug Use: No Drugs: None Hx Prescription Drug Abuse: No - Advance Directive Resuscitation Status: Full Code Surrogate healthcare decision maker:: He states his father would be his MPOA Family History Family History: CAD Parental Family History Reviewed: Yes Children Family History Reviewed: NA Sibling(s) Family History Reviewed.: Yes Medication/Allergy Home Medications: Acetaminophen [Tylenol 325 mg Tablet] 650 mg PO Q4HP PRN tablet 09/20/16 Carvedilol [Coreg 6.25 mg Tablet] 6.25 mg PO Q12 #60 tablet 09/20/16 Furosemide [Lasix] 20 mg PO DAILY #30 tablet 09/20/16 Insulin Glargine,Hum.rec.anlog [Lantus Insulin 100 Unit/mL] 15 unit SUBCUT QHS # 10 insuln.pen 09/20/16 Lisinopril [Prinivil 5 mg Tablet] 5 mg PO DAILY #30 tablet 09/20/16 Allergies/Adverse Reactions: morphine Allergy (Verified 09/22/16 05:42) tomato Allergy (Verified 09/22/16 05:42) venom-honey bee [bee venom (honey bee)] Allergy (Verified 09/22/16 05:42) Review of Systems Constitutional: PRESENT: fatigue, weakness Eyes: ABSENT: visual disturbances Ears: ABSENT: hearing changes Cardiovascular: PRESENT: dyspnea on exertion, palpitations Respiratory: PRESENT: dyspnea Gastrointestinal: PRESENT: nausea, vomiting Genitourinary: ABSENT: dysuria, hematuria Musculoskeletal: ABSENT: joint swelling Integumentary: ABSENT: rash, wounds Neurological: ABSENT: abnormal gait, abnormal speech, confusion, dizziness, focal weakness, syncope Psychiatric: ABSENT: anxiety, depression, homidical ideation, suicidal ideation Hematologic/Lymphatic: ABSENT: easy bleeding, easy bruising Physical Exam Vital Signs: Temp Pulse Resp BP Pulse Ox 97.5 F 105 H 18 117/79 99 09/22/16 16:13 09/22/16 16:13 09/22/16 16:13 09/22/16 16:13 09/22/16 16:13 Intake & Output 09/21/16 09/22/16 09/23/16 06:59 06:59 06:59 Weight 95.6 kg General appearance: PRESENT: no acute distress, well-developed, well-nourished Head exam: PRESENT: atraumatic, normocephalic Eye exam: PRESENT: conjunctiva pink, EOMI, PERRLA. ABSENT: scleral icterus Ear exam: PRESENT: normal external ear exam Mouth exam: PRESENT: moist, tongue midline Neck exam: ABSENT: carotid bruit, JVD, lymphadenopathy, thyromegaly Respiratory exam: PRESENT: crackles, symmetrical, unlabored Cardiovascular exam: PRESENT: RRR. ABSENT: diastolic murmur, rubs, systolic murmur Pulses: PRESENT: normal carotid pulses Vascular exam: PRESENT: normal capillary refill GI/Abdominal exam: PRESENT: normal bowel sounds, soft. ABSENT: distended, guarding, mass, organolmegaly, rebound, tenderness Rectal exam: PRESENT: deferred Extremities exam: PRESENT: full ROM. ABSENT: calf tenderness, clubbing, pedal edema Neurological exam: PRESENT: alert, awake, oriented to person, oriented to place , oriented to time, oriented to situation, CN II-XII grossly intact. ABSENT: motor sensory deficit Psychiatric exam: PRESENT: appropriate affect, normal mood. ABSENT: homicidal ideation, suicidal ideation Skin exam: PRESENT: dry, intact, warm. ABSENT: cyanosis, rash Results Impressions: Chest X-Ray 09/22/16 04:57 IMPRESSION: Stable. Moderate cardiac enlargement. Mild nonspecific prominence of the interstitium persists. Assessment & Plan - Diagnosis (1) Acute systolic CHF (congestive heart failure) Is this a current diagnosis for this admission?: YesPlan: Patient was given 1 dose of IV Lasix 40 mg IV. He will resume Lasix 20 mg by mouth daily. Discharge planning will help assist to ensure he has his prescribed medications. (2) Diabetes mellitus Qualifiers: Diabetes mellitus type: type 1 Diabetes mellitus complication status: with hyperglycemia Qualified Code(s): E10.65 - Type 1 diabetes mellitus with hyperglycemia Is this a current diagnosis for this admission?: YesPlan: Continue current dose of Lantus and sliding scale coverage. (3) Dyspnea Qualifiers: Dyspnea type: unspecified Qualified Code(s): R06.00 - Dyspnea, unspecified Is this a current diagnosis for this admission?: YesPlan: Secondary to his chronic systolic heart failure. (4) Nausea and vomiting Qualifiers: Vomiting type: unspecified Vomiting Intractability: non-intractable Qualified Code(s): R11.2 - Nausea with vomiting, unspecified Is this a current diagnosis for this admission?: YesPlan: He'll be given when necessary Zofran (5) Noncompliance with medication regimen Is this a current diagnosis for this admission?: YesPlan: His last 2 admissions have resulted because of his noncompliance. We will observe him overnight and discharge him in the morning. He will be discharged to [facility]. - Time Time Spent: 50 to 70 Minutes Critical Time spent with patient: 15-24 minutes Medications reviewed and adjusted accordingly: Yes Anticipated discharge: Home
[2016-09-22] MEDS: FAMOTIDINE 20 MG TABLET PO SCH (21:38)
[2016-09-22] MEDS ORDERED: INSULIN GLARGINE,HUM.REC.ANLOG 300 UNIT/3 ML INSULN.PEN SUBCUT SCH (22:00)
[2016-09-23 06:03] LABS: ANION GAP 13 (5-19); BLOOD UREA NITROGEN 16 mg/dL (7-20); CARBON DIOXIDE 21 mmol/L (22-30); CHLORIDE 103 mmol/L (98-107); CREATININE RESULT 0.79 mg/dL (0.52-1.25); GLUCOSE 241 mg/dL (75-110); MAGNESIUM 1.8 mg/dL (1.6-2.3); POTASSIUM 4.2 mmol/L (3.6-5.0); SODIUM 136.5 mmol/L (137-145)
[2016-09-23] MEDS: HEPARIN SOD (PORCINE) 5,000 UNIT/ML 1 ML SYRINGE SUBCUT SCH ×2 (06:23→13:21)
[2016-09-23] MEDS: CARVEDILOL 6.25 MG TABLET PO SCH (09:53)
[2016-09-23] MEDS: FAMOTIDINE 20 MG TABLET PO SCH (09:54)
[2016-09-23] MEDS: LISINOPRIL 5 MG TABLET PO SCH (09:54)
[2016-09-23] MEDS ORDERED: FUROSEMIDE 20 MG TABLET PO SCH (10:00)
[2016-09-23 11:49] VITALS: BP 115/73
--- NOTE | 2016-09-23 16:01 | PDOC DISCHARGE SUMMARY ---
General - Admit/Disc Date/PCP Admission Date/Primary Care Provider: 09/22/16 08:38 Discharge Date: 09/23/16 - Discharge Diagnosis (1) Acute systolic CHF (congestive heart failure) Is this a current diagnosis for this admission?: YesSummary: Euvolemic after IV lasix. Social work assisted patient in getting all of his prescriptions which he had yet to fill from his previous admission (2) Diabetes mellitus Is this a current diagnosis for this admission?: YesSummary: Continue lantus insulin. (3) Dyspnea Is this a current diagnosis for this admission?: YesSummary: Resolved (4) Nausea and vomiting Is this a current diagnosis for this admission?: YesSummary: Resolved (5) Noncompliance with medication regimen Is this a current diagnosis for this admission?: YesSummary: Prescriptions were obtained for the patient from [facility] work - Additional Information Resuscitation Status: Full Code Discharge Activity: Activity As Tolerated, Balance Activity w/Rest Home Medications: Insulin Glargine,Hum.rec.anlog [Lantus Insulin 100 Unit/mL] 15 unit SUBCUT QHS # 10 insuln.pen 09/20/16 Lisinopril [Prinivil 5 mg Tablet] 5 mg PO DAILY #30 tablet 09/20/16 Acetaminophen [Tylenol 325 mg Tablet] 650 mg PO Q4HP PRN tablet 09/23/16 Carvedilol [Coreg 6.25 mg Tablet] 6.25 mg PO Q12 #60 tablet 09/23/16 Furosemide [Lasix] 20 mg PO DAILY #30 tablet 09/23/16 Lisinopril [Prinivil 5 mg Tablet] 5 mg PO DAILY #30 tablet 09/23/16 Ondansetron [Zofran Odt 4 mg Tablet] 1 - 2 tab PO Q4HP PRN #10 tab.rapdis History of Present Illness Patient complains of: SOB and vomiting History of Present Illness: CLARENCE DIAZ JR is a 36 year old male known to our service, having been recently discharged from the hospital 2 days ago. Presented to [facility] emergency room early this morning via EMS, after having shortness of breath, vomiting and syncope while walking to the store. Patient was admitted with acute on chronic systolic heart failure with EF of 20%. He had been evaluated at [facility] 2 weeks prior. He was found to have nonischemic cardiomyopathy with an EF of 20%. He was discharged with medications and a LifeVest. Patient failed to take any of the medications that he was discharged with, he therefore presented 1 week ago with increasing shortness of breath and heart failure symptoms. He also is a type I diabetic. He has not taken his insulin for some time. The patient during his past hospitalization was given Coreg, lisinopril and furosemide prescriptions. All which were on the [employer] $4 list. He was given a Lantus pen at discharge, until he could be seen by the [facility]. He failed to take any of his prescribed medications. Chest x-ray today shows an enlarged heart but no overt heart failure fluid volume overload. He states he's unable to keep any liquids down. He has been vomiting for 24 hours. Hospital Course Hospital Course: Patient received IV Lasix in the emergency department. His shortness of breath had resolved by the time he been seen. He was admitted to telemetry on observation overnight. He had no further episodes of vomiting. He was counseled at length regarding his noncompliance. Social work was consulted to assist patient in obtaining his medications. Appointments were set up for him for [facility]. The patient states he will be relocating. He was reminded to wear the LifeVest, which he states charging at his house. Physical Exam Vital Signs: Temp Pulse Resp BP Pulse Ox 97.2 F 97 13 115/73 95 09/23/16 11:43 09/23/16 11:43 09/23/16 11:43 09/23/16 11:43 09/23/16 11:43 Intake & Output 09/22/16 09/23/16 09/24/16 06:59 06:59 06:59 Intake Total 939 240 Output Total 500 600 Balance 439 -360 Weight 95.3 kg General appearance: PRESENT: no acute distress, well-developed, well-nourished Head exam: PRESENT: atraumatic, normocephalic Eye exam: PRESENT: conjunctiva pink, EOMI, PERRLA. ABSENT: scleral icterus Ear exam: PRESENT: normal external ear exam Mouth exam: PRESENT: moist, tongue midline Neck exam: ABSENT: carotid bruit, JVD, lymphadenopathy, thyromegaly Respiratory exam: PRESENT: clear to auscultation david. ABSENT: rales, rhonchi, wheezes Cardiovascular exam: PRESENT: RRR. ABSENT: diastolic murmur, rubs, systolic murmur Pulses: PRESENT: normal carotid pulses Vascular exam: PRESENT: normal capillary refill GI/Abdominal exam: PRESENT: normal bowel sounds, soft. ABSENT: distended, guarding, mass, organolmegaly, rebound, tenderness Rectal exam: PRESENT: deferred Extremities exam: PRESENT: full ROM. ABSENT: calf tenderness, clubbing, pedal edema Neurological exam: PRESENT: alert, awake, oriented to person, oriented to place , oriented to time, oriented to situation, CN II-XII grossly intact. ABSENT: motor sensory deficit Psychiatric exam: PRESENT: appropriate affect, normal mood. ABSENT: homicidal ideation, suicidal ideation Skin exam: PRESENT: dry, intact, warm. ABSENT: cyanosis, rash Results Laboratory Results: 09/23/16 04:17 09/23/16 04:17 Sodium 136.5 L Potassium 4.2 Chloride 103 Carbon Dioxide 21 L Anion Gap 13 BUN 16 Creatinine 0.79 Est GFR ( Amer) > 60 Est GFR (Non-Af Amer) > 60 Glucose 241 H Calcium 9.0 Magnesium 1.8 09/23/16 04:17 NT-Pro-B Natriuret Pep 3500 H Impressions: Chest X-Ray 09/22/16 04:57 IMPRESSION: Stable. Moderate cardiac enlargement. Mild nonspecific prominence of the interstitium persists. Qualifiers PATEINT BEING DISCHARGED WITH ANY OF THE FOLLOWING DIAGNOSIS?: Heart Failure HF Pt being discharged on ACEI for LVEF less than 40%?: Yes HF Pt being discharged on ARBS for LVEF less than 40%?: Yes HF Pt with Afib discharged with Warfarin?: No HF Pt discharged on evidence-based Beta Gita:: Yes Plan Discharge Plan: Home with friend Time Spent: Less than 30 Minutes
== END 2016-09-23 15:22 | disposition home or self-care (01) ==
LOC: ER 04:46 → UNDOADMOB 07:57 → EH 07:57 → 4N 09:40
DX: I50.23 Acute on chronic systolic (congestive) heart failure (principal); E10.65 Type 1 diabetes mellitus with hyperglycemia; R06.00 Dyspnea, unspecified; R11.2 Nausea with vomiting, unspecified; Z91.14 Patient's other noncompliance with medication regimen; I42.8 Other cardiomyopathies; R05 Cough; R10.9 Unspecified abdominal pain; H05.229 Edema of unspecified orbit; R55 Syncope and collapse; Z87.891 Personal history of nicotine dependence; Z90.49 Acquired absence of other specified parts of digestive tract; Z82.49 Family history of ischemic heart disease and other diseases of the circulatory system
CPT/HCPCS: 93005; 99285; 96374; 96375; 36415 ×2; 82962 ×2; 82550; 83690; 83735; 85025; 80076; 80048 ×2; 81001; 84484; 80307; 83880 ×2; 71020; 93010; G0378 ×2; J1644 ×2; J1940; J1815 ×2; J3490 ×2; J2405 ×2